=== PATIENT | female | born 1935 | race Caucasian/White ===

== ENCOUNTER 2019-01-04 10:32 | Inpatient (IN) | payer MEDICARE, OTHER ==
--- NOTE | 2019-01-04 11:47 | EDM.PDOC ---
ED HPI GENERAL MEDICAL PROBLEM - General Chief Complaint: General Time Seen by Provider: 01/04/19 10:34 Source of Information: Reports: Patient History Limitations: Reports: No Limitations - History of Present Illness INITIAL COMMENTS - FREE TEXT/NARRATIVE: Pt. presents to ER after being seen in clinic by Dr. [place]. She was sent here for labs, chest x-ray and EKG due in shortness of breath and swelling in her legs. She was seen in the clinic on 12/18 for acute ankle pain. In reviewing her chart, it appears that she was found to have a R sided fibula fracture. She has not had any follow-up for this, and also has not had it immobilized. She has been ambulating on the extremity. Apparently the pt. did not respond to her letter stating this. Pt. also states that she has been having increased shortness of breath. Neighbor states that she has noticed that the patient is obviously more short of breath over the past few months. Pt. stopped taking off of her medications, including insulin and coumadin for atrial fibrillation. She had not been seen in the clinic/had "no-showed" numerous times within the past year. She presented back to the clinic with complaints of R ankle pain. According to neighbor, the patient lives in filthy living conditions. She does not have a refrigerator. She has not been bathing or changing her clothing. The neighbor has been transporting her to appointments, to the store, and has also been picking up her mail for her. Patient does not have any family, and the neighbors have basically been taking care of her. They are very concerned about the patient's living conditions. The neighbor also states that she feels that patient is becoming progressively more confused over the past months as well. Pt. denies any fever or chills. No chest pain. No cough or congestion. No dysuria. No abdominal discomfort. No nausea, vomiting, or diarrhea. Onset Date: 01/04/19 Location: Reports: Chest Quality: Reports: Dull, Pressure Associated Symptoms: Reports: Confusion, Shortness of Breath. Denies: Fever/ Chills Right Feet Pain Score (Numeric/FACES): 3 - Related Data Allergies Allergy/AdvReac Type Severity Reaction Status Date / Time atorvastatin [From Lipitor] Allergy Cannot Verified 01/04/19 11:34 Remember celecoxib [From Celebrex] Allergy Other Verified 01/04/19 11:34 dexamethasone [From Decadron] Allergy Cannot Verified 01/04/19 11:34 Remember lisinopril Allergy Cannot Verified 01/04/19 11:34 Remember metformin Allergy Cannot Verified 01/04/19 11:34 Remember moexipril HCl [From Univasc] Allergy Other Verified 01/04/19 11:34 Sulfa (Sulfonamide Allergy Cannot Verified 01/04/19 11:34 Antibiotics) Remember triamcinolone acetonide Allergy Other Verified 01/04/19 11:34 [From Kenalog] diagnostic x-ray materials Allergy Rash Uncoded 01/04/19 11:34 Home Meds: Home Meds Allopurinol [Zyloprim] 300 mg PO DAILY 01/12/14 [History] Aspirin [Ecotrin] 81 mg PO DAILY 01/12/14 [History] Carvedilol [Coreg] 25 mg PO BID 01/12/14 [History] Digoxin [Digox] 125 mcg PO DAILY 01/12/14 [History] Furosemide [Lasix] 40 mg PO DAILY 01/12/14 [History] Rosuvastatin [Crestor] 1 tab PO DAILY 01/12/14 [History] Warfarin [Coumadin] 2.5 mg PO DAILY 01/12/14 [History] amLODIPine [Norvasc] 5 mg PO DAILY 01/12/14 [History] Insulin Glargine,Hum.Rec.Anlog [Lantus Solostar] 95 unit SQ BEDTIME 01/04/19 [ History] Insulin Lispro [Humalog] 15 unit SQ TID 01/04/19 [History] ED ROS GENERAL - Review of Systems Review Of Systems: See Below Constitutional: Reports: No Symptoms HEENT: Reports: No Symptoms Respiratory: Reports: Shortness of Breath Cardiovascular: Reports: Edema Endocrine: Reports: No Symptoms GI/Abdominal: Reports: No Symptoms : Reports: No Symptoms Musculoskeletal: Reports: Leg Pain Skin: Reports: No Symptoms Neurological: Reports: No Symptoms Psychiatric: Reports: No Symptoms Hematologic/Lymphatic: Reports: No Symptoms Immunologic: Reports: No Symptoms ED EXAM, GENERAL - Physical Exam Exam: See Below Exam Limited By: No Limitations General Appearance: Alert, WD/WN, No Apparent Distress Nose: Normal Inspection, Normal Mucosa, No Blood Throat/Mouth: Normal Inspection, Normal Lips, Normal Teeth, Normal Gums, Normal Oropharynx, Normal Voice, No Airway Compromise Head: Atraumatic, Normocephalic Neck: Normal Inspection, Supple, Non-Tender, Full Range of Motion Respiratory/Chest: No Respiratory Distress, Normal Breath Sounds, No Accessory Muscle Use, Chest Non-Tender, Decreased Breath Sounds Cardiovascular: Normal Peripheral Pulses, Regular Rate, Rhythm, No Edema, No JVD , No Murmur GI/Abdominal: Normal Bowel Sounds, Soft, Non-Tender, No Organomegaly, No Distention, No Mass (Female) Exam: Deferred Rectal (Female) Exam: Deferred Back Exam: Normal Inspection, Full Range of Motion Extremities: Leg Pain, Limited Range of Motion, Other (edema to R lower extremity with fluid weeping through the skin. Point tenderness to the lateral aspect of the ankle.) Neurological: Alert, Oriented, CN II-XII Intact, Normal Cognition, Normal Gait, Normal Reflexes, No Motor/Sensory Deficits Psychiatric: Normal Affect, Normal Mood Skin Exam: Warm, Dry, Intact, Normal Color, No Rash EKG INTERPRETATION Rhythm: A-Fib Course - Vital Signs Last Recorded V/S: Last Vital Signs Temp 37.1 C 01/04/19 12:39 Pulse 101 H 01/04/19 12:39 Resp 16 01/04/19 12:39 BP 151/83 H 01/04/19 12:39 Pulse Ox 93 L 01/04/19 12:39 - Orders/Labs/Meds Orders: Active Orders 24 hr Category Date Time Status EKG Documentation Completion [RC] STAT Care 01/04/19 11:12 Active CULTURE BLOOD [BC] Stat Lab 01/04/19 11:38 Received CULTURE BLOOD [BC] Stat Lab 01/04/19 11:45 Received CULTURE WOUND [RM] Stat Lab 01/04/19 11:00 Received Sodium Chloride 0.9% [Saline Flush] Med 01/04/19 12:45 Active 10 ml FLUSH ASDIRECTED PRN Blood Culture x2 Reflex Set [OM.PC] Stat Oth 01/04/19 11:12 Ordered Peripheral IV Insertion Adult [OM.PC] Routine Oth 01/04/19 12:45 Ordered Medication Orders Pharmacy Consult (Consult To Pharmacy) 1 each .XX ASDIRECTED GAIL Sodium Chloride (Saline Flush) 10 ml FLUSH ASDIRECTED PRN PRN Reason: Keep Vein Open Labs: Laboratory Tests 01/04/19 01/04/1919 Range/Units 11:38 11:38 11:38 WBC 8.2 (4.0-10.0) x10^3/uL RBC 3.73 L (4.00-5.50) x10^6/uL Hgb 12.5 (12.0-16.0) g/dL Hct 38.1 (33.0-47.0) % MCV 102.1 H (78.0-93.0) fL MCH 33.5 H (26.0-32.0) pg MCHC 32.8 (32.0-36.0) g/dL RDW Coeff of [place] 14.7 (10.0-15.0) % Plt Count 298 (130-400) x10^3/uL Neut % (Auto) 84.0 H (50.0-80.0) % Lymph % (Auto) 9.1 L (25.0-50.0) % [place] % (Auto) 6.3 (2.0-11.0) % Eos % (Auto) 0.4 (0.0-4.0) % Baso % (Auto) 0.2 (0.2-1.2) % PT 11.9 (10.0-12.8) SEC INR 1.0 L (2.0-3.5) D-Dimer, Quantitative 1.91 H (<=0.58) mg/LFEU Sodium 144 (69-191) mmol/L Potassium 2.8 L* (1.5-9.9) mmol/L Chloride 102 (54-184) mmol/L Carbon Dioxide 31 (21-32) mmol/L Anion Gap 13.8 (10-20) mmol/L BUN 13 (7-18) mg/dL Creatinine 0.9 (0.55-1.02) mg/dL Est Cr Clr Drug Dosing TNP Estimated GFR (MDRD) 60 Glucose 196 H (74-106) mg/dL Lactic Acid (0.4-2.0) mmol/L Calcium 8.5 (8.5-10.1) mg/dL Corrected Calcium 8.90 (8.5-10.1) mg/dL Total Bilirubin 1.6 H (0.2-1.0) mg/dL AST 23 (15-37) U/L ALT 29 (14-59) U/L Alkaline Phosphatase 92 (46-116) U/L Troponin I 0.040 (<=0.056) ng/mL C-Reactive Protein 1.0 H (<=0.9) mg/dL NT-Pro-B Natriuret Pep 8900 H (<=450) pg/mL Total Protein 7.3 (6.4-8.2) g/dL Albumin 3.5 (3.4-5.0) g/dL Globulin 3.8 Albumin/Globulin Ratio 0.92 TSH, Ultra Sensitive 1.653 (0.358-3.74) uIU/mL Urine Color (YELLOW) Urine Appearance (CLEAR) Urine pH (5.0-8.0) Ur Specific [place] Urine Protein (NEGATIVE) mg/dL Urine Glucose (UA) (NEGATIVE) mg/dL Urine Ketones (NEGATIVE) mg/dL Urine Occult Blood (NEGATIVE) Urine Nitrite (NEGATIVE) Urine Bilirubin (NEGATIVE) Urine Urobilinogen (0.2) EU/dL Ur Leukocyte Esterase (NEGATIVE) Urine RBC (NOT SEEN) /HPF Urine WBC (NOT SEEN) /HPF Ur Squamous Epith Cells (NEGATIVE) /HPF Urine Bacteria (NEGATIVE) /HPF Hyaline Casts (NEGATIVE) /HPF Urine Mucus (NEGATIVE) /LPF 01/04/19 01/04/19 Range/Units 11:38 11:50 WBC (4.0-10.0) x10^3/uL RBC (4.00-5.50) x10^6/uL Hgb (12.0-16.0) g/dL Hct (33.0-47.0) % MCV (78.0-93.0) fL MCH (26.0-32.0) pg MCHC (32.0-36.0) g/dL RDW Coeff of [place] (10.0-15.0) % Plt Count (130-400) x10^3/uL Neut % (Auto) (50.0-80.0) % Lymph % (Auto) (25.0-50.0) % [place] % (Auto) (2.0-11.0) % Eos % (Auto) (0.0-4.0) % Baso % (Auto) (0.2-1.2) % PT (10.0-12.8) SEC INR (2.0-3.5) D-Dimer, Quantitative (<=0.58) mg/LFEU Sodium (69-191) mmol/L Potassium (1.5-9.9) mmol/L Chloride (54-184) mmol/L Carbon Dioxide (21-32) mmol/L Anion Gap (10-20) mmol/L BUN (7-18) mg/dL Creatinine (0.55-1.02) mg/dL Est Cr Clr Drug Dosing Estimated GFR (MDRD) Glucose (74-106) mg/dL Lactic Acid 1.9 (0.4-2.0) mmol/L Calcium (8.5-10.1) mg/dL Corrected Calcium (8.5-10.1) mg/dL Total Bilirubin (0.2-1.0) mg/dL AST (15-37) U/L ALT (14-59) U/L Alkaline Phosphatase (46-116) U/L Troponin I (<=0.056) ng/mL C-Reactive Protein (<=0.9) mg/dL NT-Pro-B Natriuret Pep (<=450) pg/mL Total Protein (6.4-8.2) g/dL Albumin (3.4-5.0) g/dL Globulin Albumin/Globulin Ratio TSH, Ultra Sensitive (0.358-3.74) uIU/mL Urine Color Dark yellow H (YELLOW) Urine Appearance Cloudy H (CLEAR) Urine pH 7.0 (5.0-8.0) Ur Specific [place] 1.025 Urine Protein >=300 H (NEGATIVE) mg/dL Urine Glucose (UA) Negative (NEGATIVE) mg/dL Urine Ketones Trace H (NEGATIVE) mg/dL Urine Occult Blood Moderate H (NEGATIVE) Urine Nitrite Negative (NEGATIVE) Urine Bilirubin Small H (NEGATIVE) Urine Urobilinogen 1.0 (0.2) EU/dL Ur Leukocyte Esterase Negative (NEGATIVE) Urine RBC 20-30 H (NOT SEEN) /HPF Urine WBC 0-5 (NOT SEEN) /HPF Ur Squamous Epith Cells Few H (NEGATIVE) /HPF Urine Bacteria Not seen (NEGATIVE) /HPF Hyaline Casts Rare H (NEGATIVE) /HPF Urine Mucus Rare H (NEGATIVE) /LPF Meds: Medications Generic Name Dose Route Start Last Admin Trade Name Freq PRN Reason Stop Dose Admin Pharmacy Consult 1 each 01/04/19 13:45 Consult To Pharmacy .XX ASDIRECTED GAIL Sodium Chloride 10 ml 01/04/19 12:45 Saline Flush FLUSH ASDIRECTED PRN Keep Vein Open - Radiology Interpretation Free Text/Narrative:: Chest x-ray negative for acute pathology. Evidence of acute R fibula fracture on the R. No obvious change from previous, despite the extremity not being immobilized. Departure - Departure Time of Disposition: 13:49 Disposition: Admitted As Inpatient 66 Clinical Impression: CHF, Congestive heart failure, Hypokalemia, Fracture, fibula - Discharge Information - My Orders Last 24 Hours: My Active Orders 01/04/19 11:00 CULTURE WOUND [RM] Stat 01/04/19 11:12 EKG Documentation Completion [RC] STAT Blood Culture x2 Reflex Set [OM.PC] Stat 01/04/19 11:38 CULTURE BLOOD [BC] Stat 01/04/19 11:45 CULTURE BLOOD [BC] Stat 01/04/19 12:45 Sodium Chloride 0.9% [Saline Flush] 10 ml FLUSH ASDIRECTED PRN Peripheral IV Insertion Adult [OM.PC] Routine - Assessment/Plan Last 24 Hours: My Active Orders 01/04/19 11:00 CULTURE WOUND [RM] Stat 01/04/19 11:12 EKG Documentation Completion [RC] STAT Blood Culture x2 Reflex Set [OM.PC] Stat 01/04/19 11:38 CULTURE BLOOD [BC] Stat 01/04/19 11:45 CULTURE BLOOD [BC] Stat 01/04/19 12:45 Sodium Chloride 0.9% [Saline Flush] 10 ml FLUSH ASDIRECTED PRN Peripheral IV Insertion Adult [OM.PC] Routine Plan: Pt. agrees to be admitted. She will be admitted acutely. Rajiv Guido will be admitting. Pt. d dimer was positive. It was performed due to extremity edema. She needs to be anticoagulated for atrial fibrillation anyway, so she will be bridged with lovenox and restarted on coumadin, and a R lower extremity US will be performed on Tuesday. Pt. is very resistant to transfer, less so to admission.
--- NOTE | 2019-01-04 11:51 | CR ---
[id number] RAD/RAD Chest PA or AP 1V EXAM: RAD Chest PA or AP 1V INDICATION: EDEMA. COMPARISON: None. DISCUSSION: Cardiomegaly and central vascular congestion with bilateral pleural effusions right greater than left. Chest wall cardiac conduction device in place. Lungs demonstrate basal predominant interlobular septal thickening, most consistent with edematous change given other findings in the chest. IMPRESSION: Findings most consistent with CHF exacerbation, described above. Cj Koroma MD 01/04/19 [id number] Thank you for allowing us to participate in the care of your patient.
[2019-01-04 12:19] LABS: CHLORIDE,CL 102 mmol/L (54-184); SODIUM,NA 144 mmol/L (69-191)
[2019-01-04 12:20] LABS: ANION GAP 13.8 mmol/L (10-20)
--- NOTE | 2019-01-04 12:33 | CR ---
[id number] RAD/RAD Ankle Right 3V Min Exam: RAD Ankle Right 3V Min Indication:QUESTION FRACTURE OF RIGHT ANKLE (FIBULA). Comparison: No prior imaging for comparison. Discussion: Acute obliquely orientated nondisplaced fracture distal fibular metaphysis. No evidence of ankle mortise instability. No other fractures. Associated soft tissue edema in the lower leg and ankle. Chronic findings include osteoarthritis and enthesopathy of the Achilles tendon and plantar fascia at their calcaneal attachments. Diffuse bone demineralization. Impression: Acute nondisplaced obliquely orientated distal fibular metaphysis fracture with overlying soft tissue swelling. Cj Koroma MD 01/04/19 1835 Thank you for allowing us to participate in the care of your patient.
[2019-01-04] MEDS ORDERED: Sodium Chloride 0.9% 10 ML Syringe FLUSH PRN (12:45)
[2019-01-04 13:55] LABS: HEMOGLOBIN A1C 7.8 % (4.5-6.2)
[2019-01-04] MEDS ORDERED: Magnesium Sulfate/Water 2 GM in Premix Bag 1 BAG IV ONE (14:21)
[2019-01-04] MEDS ORDERED: Enoxaparin 40 MG/0.4 ML Syringe SUBCUT SCH (14:30)
[2019-01-04] MEDS ORDERED: Enoxaparin 100 MG/1 ML Syringe SUBCUT SCH (15:00)
[2019-01-04] MEDS ORDERED: Iopamidol 612 MG/ML 100 ML Bottle IVPUSH ONE (15:12)
[2019-01-04] MEDS: Potassium Chloride Riders 20 MEQ in Premix Bag 1 BAG IV SCH ×2 (16:15→22:28)
[2019-01-04] MEDS: Sodium Chloride 0.9% 1,000 ML IV SCH (16:15)
--- NOTE | 2019-01-04 16:50 | CT ---
[id number] CT/CTA Chest EXAM: CTA Chest CLINICAL DATA: ELEVATED D-DIMER, SHORTNESS OF BREATH, CONGESTIVE COMPARISON: January 04, 2019. FINDINGS: LUNGS: Bilateral pleural effusions right greater than left with basal predominant interlobular septal thickening and groundglass parenchymal opacities consistent with edema. Findings are consistent with fluid retention the chest. No suspicious parenchymal nodularity. HEART AND GREAT VESSELS: Cardiomegaly and central vascular congestion. No pericardial effusion. Negative for pulmonary embolus. Thoracic aorta atherosclerosis. No aneurysm. MEDIASTINUM AND LYMPHATICS: No mediastinal or hilar lymphadenopathy. UPPER ABDOMINAL ORGANS: Small amount of ascites in the upper abdomen in the perihepatic region. Other structures are unremarkable. BONES: Scattered changes of spondylosis throughout the spine. No fracture or osseous lesion. IMPRESSION: Changes consistent with CHF exacerbation as seen on radiograph from today. No pulmonary embolus or other acute findings in the chest. Cj Koroma MD 01/04/19 0246 Thank you for allowing us to participate in the care of your patient.
[2019-01-04] MEDS: Enoxaparin 100 MG/1 ML Syringe SUBCUT SCH (19:09)
[2019-01-04] MEDS: Carvedilol 3.125 MG Tab PO SCH (19:09)
[2019-01-04] MEDS: Insulin Regular, Human 100 Units/ML 3 ML Vial SUBCUT SCH ×2 (19:42→20:57)
[2019-01-04] MEDS: Warfarin 5 MG Tab PO SCH (19:59)
--- NOTE | 2019-01-04 20:24 | PCM.HP.2 ---
H&P History of Present Illness - General Date of Service: 01/04/19 Admit Problem/Dx: Admission Diagnosis/Problem Admission Diagnosis/Problem Acute exacerbation of chronic congestive heart failure Hypokalemia Hypomagnesemia Fluid retention Nondisplaced distal fibular metaphysis fracture, right Malnutrition Uncontrolled diabetes type 2 Acute pulmonary edema secondary to CHF Source of Information: Patient, Old Records, RN, RN Notes Reviewed History Limitations: Reports: No Limitations - History of Present Illness Initial Comments - Free Text/Narative: 82-year-old female patient seen in clinic on December 28, 2018 for a chief complaint of right ankle pain. The patient had denied any injury at that time. X -ray of the right ankle at that time did show a fracture. The patient was contacted via letter so her right foot to be placed in a boot, however she did not return to the clinic. The patient was seen again today in clinic for swelling of the right calf and right lower extremity, painful ankle, and increasing shortness of breath. The patient is somewhat of a poor historian and could not remember when her shortness of breath started. Given the provider's examination, it was felt the patient needed to be seen in emergency room due to her current symptoms. The patient is also had a 16 pound weight loss over the past week. Workup in the emergency department at [facility] showed a BNP of 8900, potassium of 2.9, pulmonary edema on chest x-ray, and again the nondisplaced distal fibular fracture. The patient has blistering of the right lower extremity. According to the patient's clinical records, the patient had stopped all of her medications over 8 months ago. The patient has a history of atrial fibrillation and has not been taking her Coumadin placing her at great risk of a pulmonary embolus or DVT. The patient also has not been taking her insulin or antihypertensive medications. The patient's last visit in clinic was January 2018. The patient also has a pacemaker and has not been following up with the pacemaker clinic. The patient is admitted to the acute care floor at [facility] for acute exacerbation of CHF, right fibular fracture, uncontrolled diabetes, malnutrition , and pulmonary edema. Onset of Symptoms: Reports: Unknown/Unsure Right Feet Pain Score (Numeric/FACES): 3 - Related Data Allergies/Adverse Reactions: Allergies Allergy/AdvReac Type Severity Reaction Status Date / Time atorvastatin [From Lipitor] Allergy Cannot Verified 01/04/19 11:34 Remember celecoxib [From Celebrex] Allergy Other Verified 01/04/19 11:34 dexamethasone [From Decadron] Allergy Cannot Verified 01/04/19 11:34 Remember lisinopril Allergy Cannot Verified 01/04/19 11:34 Remember metformin Allergy Cannot Verified 01/04/19 11:34 Remember moexipril HCl [From Univasc] Allergy Other Verified 01/04/19 11:34 Sulfa (Sulfonamide Allergy Cannot Verified 01/04/19 11:34 Antibiotics) Remember triamcinolone acetonide Allergy Other Verified 01/04/19 11:34 [From Kenalog] diagnostic x-ray materials Allergy Rash Uncoded 01/04/19 11:34 Home Medications: Home Meds Allopurinol [Zyloprim] 300 mg PO DAILY 01/12/14 [History] Aspirin [Ecotrin] 81 mg PO DAILY 01/12/14 [History] Carvedilol [Coreg] 25 mg PO BIDMEALS 01/12/14 [History] Digoxin [Digox] 125 mcg PO DAILY 01/12/14 [History] Furosemide [Lasix] 40 mg PO DAILY 01/12/14 [History] Rosuvastatin [Crestor] 20 mg PO DAILY 01/12/14 [History] Warfarin [Coumadin] 1.25 mg PO MOTH 01/12/14 [History] amLODIPine [Norvasc] 5 mg PO DAILY 01/12/14 [History] Insulin Glargine,Hum.Rec.Anlog [Lantus Solostar] 95 unit SQ BEDTIME 01/04/19 [ History] Insulin Lispro [Humalog] 15 unit SQ TIDMEALS 01/04/19 [History] Warfarin [Coumadin] 2.5 mg PO SUTUWEFRSA 01/04/19 [History] Past Medical History Cardiovascular History: Reports: Afib, CAD, Heart Failure, High Cholesterol, Hypertension, Pacemaker, Stents Other Cardiovascular History: hypotension Gastrointestinal History: Reports: Diverticulosis Genitourinary History: Reports: Renal Calculus Musculoskeletal History: Reports: Gout Endocrine/Metabolic History: Reports: Diabetes, Type II - Past Surgical History Cardiovascular Surgical History: Reports: Coronary Artery Stent, Pacer Social & Family History - Tobacco Use Smoking Status *Q: Never Smoker Second Hand Smoke Exposure: No - Caffeine Use Caffeine Use: Reports: None - Recreational Drug Use Recreational Drug Use: No H&P Review of Systems - Review of Systems: Review Of Systems: ROS reveals no pertinent complaints other than HPI. Exam - Exam Exam: See Below - Vital Signs Vital Signs: Last Vital Signs Temp 98.3 F 01/04/19 17:16 Pulse 91 01/04/19 19:09 Resp 18 01/04/19 17:16 BP 139/64 01/04/19 19:09 Pulse Ox 91 L 01/04/19 17:16 Weight: 189 lb 14.4 oz - Exam Quality Assessment: DVT Prophylaxis, Skin Breakdown General: Alert, Cooperative. No: Oriented Lungs: Normal Respiratory Effort, Decreased Breath Sounds, Crackles Cardiovascular: Regular Rate, Irregular Rhythm GI/Abdominal Exam: Soft, Non-Tender, Abnormal Bowel Sounds (Hypoactive) Extremities: Other (Right lower extremity reveals +2 dependent pitting edema; anterior blistering of the right lower extremity; +1 intermittent palpable pulse ; no evidence of active infection; skin normal temp) Peripheral Pulses: 1+: Radial (L), Radial (R) Skin: Warm, Dry, Wound (Anterior right lower leg) Neuro Extensive - Mental Status: Alert, Disorientation to Time - Patient Data Lab Results Last 24 hrs: Laboratory Results - last 24 hr 01/04/19 01/04/19 01/04/19 Range/Units 11:38 11:38 11:38 WBC 8.2 (4.0-10.0) x10^3/uL RBC 3.73 L (4.00-5.50) x10^6/uL Hgb 12.5 (12.0-16.0) g/dL Hct 38.1 (33.0-47.0) % MCV 102.1 H (78.0-93.0) fL MCH 33.5 H (26.0-32.0) pg MCHC 32.8 (32.0-36.0) g/dL RDW Coeff of [place] 14.7 (10.0-15.0) % Plt Count 298 (130-400) x10^3/uL Neut % (Auto) 84.0 H (50.0-80.0) % Lymph % (Auto) 9.1 L (25.0-50.0) % [place] % (Auto) 6.3 (2.0-11.0) % Eos % (Auto) 0.4 (0.0-4.0) % Baso % (Auto) 0.2 (0.2-1.2) % PT 11.9 (10.0-12.8) SEC INR 1.0 L (2.0-3.5) D-Dimer, Quantitative 1.91 H (<=0.58) mg/LFEU Sodium 144 (69-191) mmol/L Potassium 2.8 L* (1.5-9.9) mmol/L Chloride 102 (54-184) mmol/L Carbon Dioxide 31 (21-32) mmol/L Anion Gap 13.8 (10-20) mmol/L BUN 13 (7-18) mg/dL Creatinine 0.9 (0.55-1.02) mg/dL Est Cr Clr Drug Dosing TNP Estimated GFR (MDRD) 60 Glucose 196 H (74-106) mg/dL POC Glucose (74-106) mg/dL Hemoglobin A1c (4.5-6.2) % Lactic Acid (0.4-2.0) mmol/L Uric Acid (2.6-6.0) mg/dL Calcium 8.5 (8.5-10.1) mg/dL Corrected Calcium 8.90 (8.5-10.1) mg/dL Phosphorus (2.6-4.7) mg/dL Magnesium (1.8-2.4) mg/dL Total Bilirubin 1.6 H (0.2-1.0) mg/dL AST 23 (15-37) U/L ALT 29 (14-59) U/L Alkaline Phosphatase 92 (46-116) U/L Troponin I 0.040 (<=0.056) ng/mL C-Reactive Protein 1.0 H (<=0.9) mg/dL NT-Pro-B Natriuret Pep 8900 H (<=450) pg/mL Total Protein 7.3 (6.4-8.2) g/dL Albumin 3.5 (3.4-5.0) g/dL Globulin 3.8 Albumin/Globulin Ratio 0.92 TSH, Ultra Sensitive 1.653 (0.358-3.74) uIU/mL Urine Color (YELLOW) Urine Appearance (CLEAR) Urine pH (5.0-8.0) Ur Specific [place] Urine Protein (NEGATIVE) mg/dL Urine Glucose (UA) (NEGATIVE) mg/dL Urine Ketones (NEGATIVE) mg/dL Urine Occult Blood (NEGATIVE) Urine Nitrite (NEGATIVE) Urine Bilirubin (NEGATIVE) Urine Urobilinogen (0.2) EU/dL Ur Leukocyte Esterase (NEGATIVE) Urine RBC (NOT SEEN) /HPF Urine WBC (NOT SEEN) /HPF Ur Squamous Epith Cells (NEGATIVE) /HPF Urine Bacteria (NEGATIVE) /HPF Hyaline Casts (NEGATIVE) /HPF Urine Mucus (NEGATIVE) /LPF Digoxin (0.90-2.00) ng/mL 01/04/19 01/04/19 01/04/19 Range/Units 11:38 11:38 11:38 WBC (4.0-10.0) x10^3/uL RBC (4.00-5.50) x10^6/uL Hgb (12.0-16.0) g/dL Hct (33.0-47.0) % MCV (78.0-93.0) fL MCH (26.0-32.0) pg MCHC (32.0-36.0) g/dL RDW Coeff of [place] (10.0-15.0) % Plt Count (130-400) x10^3/uL Neut % (Auto) (50.0-80.0) % Lymph % (Auto) (25.0-50.0) % [place] % (Auto) (2.0-11.0) % Eos % (Auto) (0.0-4.0) % Baso % (Auto) (0.2-1.2) % PT (10.0-12.8) SEC INR (2.0-3.5) D-Dimer, Quantitative (<=0.58) mg/LFEU Sodium (69-191) mmol/L Potassium (1.5-9.9) mmol/L Chloride (54-184) mmol/L Carbon Dioxide (21-32) mmol/L Anion Gap (10-20) mmol/L BUN (7-18) mg/dL Creatinine (0.55-1.02) mg/dL Est Cr Clr Drug Dosing Estimated GFR (MDRD) Glucose (74-106) mg/dL POC Glucose (74-106) mg/dL Hemoglobin A1c 7.8 H (4.5-6.2) % Lactic Acid 1.9 (0.4-2.0) mmol/L Uric Acid (2.6-6.0) mg/dL Calcium (8.5-10.1) mg/dL Corrected Calcium (8.5-10.1) mg/dL Phosphorus 3.1 (2.6-4.7) mg/dL Magnesium 1.5 L (1.8-2.4) mg/dL Total Bilirubin (0.2-1.0) mg/dL AST (15-37) U/L ALT (14-59) U/L Alkaline Phosphatase (46-116) U/L Troponin I (<=0.056) ng/mL C-Reactive Protein (<=0.9) mg/dL NT-Pro-B Natriuret Pep (<=450) pg/mL Total Protein (6.4-8.2) g/dL Albumin (3.4-5.0) g/dL Globulin Albumin/Globulin Ratio TSH, Ultra Sensitive (0.358-3.74) uIU/mL Urine Color (YELLOW) Urine Appearance (CLEAR) Urine pH (5.0-8.0) Ur Specific [place] Urine Protein (NEGATIVE) mg/dL Urine Glucose (UA) (NEGATIVE) mg/dL Urine Ketones (NEGATIVE) mg/dL Urine Occult Blood (NEGATIVE) Urine Nitrite (NEGATIVE) Urine Bilirubin (NEGATIVE) Urine Urobilinogen (0.2) EU/dL Ur Leukocyte Esterase (NEGATIVE) Urine RBC (NOT SEEN) /HPF Urine WBC (NOT SEEN) /HPF Ur Squamous Epith Cells (NEGATIVE) /HPF Urine Bacteria (NEGATIVE) /HPF Hyaline Casts (NEGATIVE) /HPF Urine Mucus (NEGATIVE) /LPF Digoxin (0.90-2.00) ng/mL 01/04/19 01/04/19 01/04/19 Range/Units 11:38 11:50 17:20 WBC (4.0-10.0) x10^3/uL RBC (4.00-5.50) x10^6/uL Hgb (12.0-16.0) g/dL Hct (33.0-47.0) % MCV (78.0-93.0) fL MCH (26.0-32.0) pg MCHC (32.0-36.0) g/dL RDW Coeff of [place] (10.0-15.0) % Plt Count (130-400) x10^3/uL Neut % (Auto) (50.0-80.0) % Lymph % (Auto) (25.0-50.0) % [place] % (Auto) (2.0-11.0) % Eos % (Auto) (0.0-4.0) % Baso % (Auto) (0.2-1.2) % PT (10.0-12.8) SEC INR (2.0-3.5) D-Dimer, Quantitative (<=0.58) mg/LFEU Sodium (69-191) mmol/L Potassium (1.5-9.9) mmol/L Chloride (54-184) mmol/L Carbon Dioxide (21-32) mmol/L Anion Gap (10-20) mmol/L BUN (7-18) mg/dL Creatinine (0.55-1.02) mg/dL Est Cr Clr Drug Dosing Estimated GFR (MDRD) Glucose (74-106) mg/dL POC Glucose 161 H (74-106) mg/dL Hemoglobin A1c (4.5-6.2) % Lactic Acid (0.4-2.0) mmol/L Uric Acid 9.9 H (2.6-6.0) mg/dL Calcium (8.5-10.1) mg/dL Corrected Calcium (8.5-10.1) mg/dL Phosphorus (2.6-4.7) mg/dL Magnesium (1.8-2.4) mg/dL Total Bilirubin (0.2-1.0) mg/dL AST (15-37) U/L ALT (14-59) U/L Alkaline Phosphatase (46-116) U/L Troponin I (<=0.056) ng/mL C-Reactive Protein (<=0.9) mg/dL NT-Pro-B Natriuret Pep (<=450) pg/mL Total Protein (6.4-8.2) g/dL Albumin (3.4-5.0) g/dL Globulin Albumin/Globulin Ratio TSH, Ultra Sensitive (0.358-3.74) uIU/mL Urine Color Dark yellow H (YELLOW) Urine Appearance Cloudy H (CLEAR) Urine pH 7.0 (5.0-8.0) Ur Specific [place] 1.025 Urine Protein >=300 H (NEGATIVE) mg/dL Urine Glucose (UA) Negative (NEGATIVE) mg/dL Urine Ketones Trace H (NEGATIVE) mg/dL Urine Occult Blood Moderate H (NEGATIVE) Urine Nitrite Negative (NEGATIVE) Urine Bilirubin Small H (NEGATIVE) Urine Urobilinogen 1.0 (0.2) EU/dL Ur Leukocyte Esterase Negative (NEGATIVE) Urine RBC 20-30 H (NOT SEEN) /HPF Urine WBC 0-5 (NOT SEEN) /HPF Ur Squamous Epith Cells Few H (NEGATIVE) /HPF Urine Bacteria Not seen (NEGATIVE) /HPF Hyaline Casts Rare H (NEGATIVE) /HPF Urine Mucus Rare H (NEGATIVE) /LPF Digoxin < 0.20 L (0.90-2.00) ng/mL 01/04/19 Range/Units 19:57 WBC (4.0-10.0) x10^3/uL RBC (4.00-5.50) x10^6/uL Hgb (12.0-16.0) g/dL Hct (33.0-47.0) % MCV (78.0-93.0) fL MCH (26.0-32.0) pg MCHC (32.0-36.0) g/dL RDW Coeff of [place] (10.0-15.0) % Plt Count (130-400) x10^3/uL Neut % (Auto) (50.0-80.0) % Lymph % (Auto) (25.0-50.0) % [place] % (Auto) (2.0-11.0) % Eos % (Auto) (0.0-4.0) % Baso % (Auto) (0.2-1.2) % PT (10.0-12.8) SEC INR (2.0-3.5) D-Dimer, Quantitative (<=0.58) mg/LFEU Sodium (69-191) mmol/L Potassium (1.5-9.9) mmol/L Chloride (54-184) mmol/L Carbon Dioxide (21-32) mmol/L Anion Gap (10-20) mmol/L BUN (7-18) mg/dL Creatinine (0.55-1.02) mg/dL Est Cr Clr Drug Dosing Estimated GFR (MDRD) Glucose (74-106) mg/dL POC Glucose 225 H (74-106) mg/dL Hemoglobin A1c (4.5-6.2) % Lactic Acid (0.4-2.0) mmol/L Uric Acid (2.6-6.0) mg/dL Calcium (8.5-10.1) mg/dL Corrected Calcium (8.5-10.1) mg/dL Phosphorus (2.6-4.7) mg/dL Magnesium (1.8-2.4) mg/dL Total Bilirubin (0.2-1.0) mg/dL AST (15-37) U/L ALT (14-59) U/L Alkaline Phosphatase (46-116) U/L Troponin I (<=0.056) ng/mL C-Reactive Protein (<=0.9) mg/dL NT-Pro-B Natriuret Pep (<=450) pg/mL Total Protein (6.4-8.2) g/dL Albumin (3.4-5.0) g/dL Globulin Albumin/Globulin Ratio TSH, Ultra Sensitive (0.358-3.74) uIU/mL Urine Color (YELLOW) Urine Appearance (CLEAR) Urine pH (5.0-8.0) Ur Specific [place] Urine Protein (NEGATIVE) mg/dL Urine Glucose (UA) (NEGATIVE) mg/dL Urine Ketones (NEGATIVE) mg/dL Urine Occult Blood (NEGATIVE) Urine Nitrite (NEGATIVE) Urine Bilirubin (NEGATIVE) Urine Urobilinogen (0.2) EU/dL Ur Leukocyte Esterase (NEGATIVE) Urine RBC (NOT SEEN) /HPF Urine WBC (NOT SEEN) /HPF Ur Squamous Epith Cells (NEGATIVE) /HPF Urine Bacteria (NEGATIVE) /HPF Hyaline Casts (NEGATIVE) /HPF Urine Mucus (NEGATIVE) /LPF Digoxin (0.90-2.00) ng/mL Result Diagrams: 01/04/19 11:38 01/04/19 11:38 *Q Meaningful Use (ADM) - VTE *Q VTE Mechanical Contraindications *Q: At Risk for Falls Problem List Initiated/Reviewed/Updated: Yes Orders Last 24hrs: Active Orders 24 hr Category Date Time Status Patient Status [ADT] Routine ADT 01/04/19 13:27 Active Accu Check [Blood Glucose Check, Bedside] [RC] 07,11,17 Care 01/04/19 15:22 Active ,20 Bedrest Bedside Commode [RC] 08,20 Care 01/04/19 13:25 Active Cardiac Monitoring [RC] 02,06,10,14,18,22 Care 01/04/19 13:29 Active Height and Weight [RC] 07 Care 01/04/19 13:25 Active Intake and Output [RC] 06,18 Care 01/04/19 13:28 Active May Shower [RC] .PRN Care 01/04/19 13:25 Active Oxygen Therapy [RC] .PRN Care 01/04/19 13:27 Active VTE/DVT Education [RC] .PRN Care 01/04/19 13:27 Active Vital Signs [RC] 02,06,10,14,18,22 Care 01/04/19 13:27 Active Consult to Case Management/Pension Fund Manager [CONS] Cons 01/04/19 13:25 Active Routine OT Evaluation and Treatment [CONS] Routine Cons 01/04/19 13:25 Active PT Evaluation and Treatment [CONS] Routine Cons 01/04/19 13:25 Active [employer] Diet [DIET] Diet 01/04/19 Breakfast Active BASIC METABOLIC PANEL,BMP [CHEM] Routine Lab 01/05/19 05:11 Ordered CBC WITH AUTO DIFF [HEME] Routine Lab 01/05/19 05:11 Ordered CULTURE BLOOD [BC] Stat Lab 01/04/19 11:38 Received CULTURE BLOOD [BC] Stat Lab 01/04/19 11:45 Received CULTURE WOUND [RM] Stat Lab 01/04/19 11:00 Received INR,PT,PROTHROMBIN TIME [COAG] DAILY Lab 01/05/19 05:01 Ordered INR,PT,PROTHROMBIN TIME [COAG] DAILY Lab 01/06/19 05:01 Ordered INR,PT,PROTHROMBIN TIME [COAG] DAILY Lab 01/07/19 05:01 Ordered INR,PT,PROTHROMBIN TIME [COAG] DAILY Lab 01/08/19 05:01 Ordered INR,PT,PROTHROMBIN TIME [COAG] DAILY Lab 01/09/19 05:01 Ordered INR,PT,PROTHROMBIN TIME [COAG] DAILY Lab 01/10/19 05:01 Ordered INR,PT,PROTHROMBIN TIME [COAG] DAILY Lab 01/11/19 05:01 Ordered MAGNESIUM [CHEM] Routine Lab 01/05/19 05:11 Ordered Carvedilol [Coreg] Med 01/04/19 18:00 Active 3.125 mg PO BIDM Enoxaparin [Lovenox] Med 01/04/19 18:00 Active 90 mg SUBCUT Q12H Insulin Regular, Human [HumuLIN R] Med 01/04/19 18:00 Active See Protocol SUBCUT TIDMEALS Pharmacy Consult [Consult to Pharmacy] Med 01/04/19 13:45 Pending 1 each .XX ASDIRECTED Sodium Chloride 0.9% [Normal Saline] 1,000 ml Med 01/04/19 13:45 Active IV ASDIRECTED Sodium Chloride 0.9% [Saline Flush] Med 01/04/19 12:45 Active 10 ml FLUSH ASDIRECTED PRN Warfarin [Coumadin] Med 01/04/19 20:00 Active 5 mg PO BEDTIME amLODIPine [Norvasc] Med 01/05/19 08:00 Active 2.5 mg PO DAILY Blood Culture x2 Reflex Set [OM.PC] Stat Oth 01/04/19 11:12 Ordered Peripheral IV Insertion Adult [OM.PC] Routine Oth 01/04/19 12:45 Ordered Resuscitation Status Routine Resus Stat 01/04/19 13:25 Ordered Medication Orders Amlodipine Besylate (Norvasc) 2.5 mg PO DAILY [facility] Carvedilol (Coreg) 3.125 mg PO BIDM [facility] Last Admin: 01/04/19 19:09 Dose: 3.125 mg Enoxaparin Sodium (Lovenox) 90 mg SUBCUT Q12H [facility] Last Admin: 01/04/19 19:09 Dose: 90 mg Sodium Chloride (Normal Saline) 1,000 mls @ 50 mls/hr IV ASDIRECTED GAIL Last Admin: 01/04/19 16:15 Dose: 50 mls/hr Insulin Human Regular (Humulin R) 0 unit SUBCUT TIDMEALS [facility]; Protocol Last Admin: 01/04/19 19:42 Dose: Not Given Pharmacy Consult (Consult To Pharmacy) 1 each .XX ASDIRECTED GAIL Sodium Chloride (Saline Flush) 10 ml FLUSH ASDIRECTED PRN PRN Reason: Keep Vein Open Last Admin: 01/04/19 16:21 Dose: 10 ml Warfarin Sodium (Coumadin) 5 mg PO BEDTIME [facility] Last Admin: 01/04/19 19:59 Dose: 5 mg Assessment/Plan Comment:: Acute exacerbation of chronic congestive heart failure Pulmonary edema Fluid retention Uncontrolled diabetes type 2 Hypokalemia Hypomagnesemia Chronic atrial fibrillation Sinoatrial node dysfunction Essential hypertension Mixed hyperlipidemia 83-year-old female patient with a past medical history of congestive heart failure, atrial fibrillation, essential hypertension, diabetes type 2, coronary artery disease is admitted to the acute care floor at [facility] for a primary diagnosis of acute exacerbation of congestive heart failure, pulmonary edema, fluid retention, uncontrolled diabetes type 2, hypokalemia, hypomagnesemia, and malnutrition. The patient will not be given any Lasix until her potassium has been repleted. Will give the patient 40 mEq of IV potassium. Patient will also receive 2 g of IV magnesium. The patient CT scan of her chest was negative for any pulmonary embolus. The CT scan showed pulmonary edema. We will hold the patient's home insulins at this time and start the patient on high -dose sliding scale. Since the patient has not been on her medications we will reintroduce them slowly. The patient will be started on low-dose Coreg twice daily as well as low-dose Norvasc. We will hold all the other patient's medications. We will place the patient denied Cam Walker boot and weightbearing as tolerated. We will consult physical and occupational therapy as well as case management for discharge planning, possible detention placement depending upon how the patient does. We will also consider guardianship for the patient due to her malnutrition and home living situation. The patient is a code 1. The patient will be transferred to a high-level care should the need arise. The patient will be started on Coumadin bridged with Lovenox per pharmacy for anticoagulation. I do anticipate the patient to be admitted at least 3-4 days. NOTE: This patient was seen and examined by me as an [facility] provider. - Mortality Measure Prognosis:: Poor
[2019-01-04] MEDS ORDERED: Potassium Chloride Riders 20 MEQ in Premix Bag 1 BAG IV ONE (22:30)
[2019-01-05] MEDS: Enoxaparin 100 MG/1 ML Syringe SUBCUT SCH (06:02)
[2019-01-05 07:04] LABS: CHLORIDE,CL 105 mmol/L (54-184); SODIUM,NA 144 mmol/L (69-191)
[2019-01-05 07:05] LABS: ANION GAP 13.2 mmol/L (10-20)
[2019-01-05] MEDS: amLODIPine 2.5 MG Tab PO SCH (07:29)
[2019-01-05] MEDS: Carvedilol 3.125 MG Tab PO SCH ×2 (07:29→18:36)
[2019-01-05] MEDS: Insulin Regular, Human 100 Units/ML 3 ML Vial SUBCUT SCH ×3 (07:31→18:05)
[2019-01-05] MEDS ORDERED: Furosemide 40 MG/4 ML VIAL IV ONE (12:58)
--- NOTE | 2019-01-05 13:06 | PCM.PN ---
- General Info Date of Service: 01/05/19 Admission Dx/Problem (Free Text): Admission Diagnosis/Problem Admission Diagnosis/Problem Acute exacerbation of chronic congestive heart failure Hypokalemia Hypomagnesemia Fluid retention Nondisplaced distal fibular metaphysis fracture, right Malnutrition Uncontrolled diabetes type 2 Acute pulmonary edema secondary to CHF Functional Status: Reports: Pain Controlled, Tolerating Diet, Urinating. Denies : New Symptoms Pain Score: 2 - Review of Systems General: Reports: Weakness. Denies: Fever, Chills Pulmonary: Reports: Shortness of Breath. Denies: Cough Cardiovascular: Denies: Chest Pain, Palpitations Gastrointestinal: Denies: Abdominal Pain, Nausea, Vomiting Musculoskeletal: Reports: Other (PAIN RIGHT LOWER LEG) Skin: Reports: Other (WEEPING OF RIGHT LOWER LEG; EDEMA +2 DEPENDENT PITTING) Neurological: Reports: No Symptoms - Patient Data Vitals - Most Recent: Last Vital Signs Temp 98 F 01/05/19 10:00 Pulse 82 01/05/19 10:00 Resp 16 01/05/19 10:00 BP 118/55 L 01/05/19 10:00 Pulse Ox 94 L 01/05/19 10:00 Weight - Most Recent: 191 lb I&O - Last 24 Hours: Intake & Output 01/04/19 01/05/19 01/05/19 22:59 06:59 14:59 Intake Total 237 635 240 Output Total 150 100 Balance 237 485 140 Lab Results Last 24 Hours: Laboratory Results - last 24 hr 01/04/19 01/04/19 01/04/19 Range/Units 11:38 11:38 11:38 WBC (4.0-10.0) x10^3/uL RBC (4.00-5.50) x10^6/uL Hgb (12.0-16.0) g/dL Hct (33.0-47.0) % MCV (78.0-93.0) fL MCH (26.0-32.0) pg MCHC (32.0-36.0) g/dL RDW Coeff of [place] (10.0-15.0) % Plt Count (130-400) x10^3/uL Neut % (Auto) (50.0-80.0) % Lymph % (Auto) (25.0-50.0) % [place] % (Auto) (2.0-11.0) % Eos % (Auto) (0.0-4.0) % Baso % (Auto) (0.2-1.2) % PT (10.0-12.8) SEC INR (2.0-3.5) Sodium (69-191) mmol/L Potassium (1.5-9.9) mmol/L Chloride (54-184) mmol/L Carbon Dioxide (21-32) mmol/L Anion Gap (10-20) mmol/L BUN (7-18) mg/dL Creatinine (0.55-1.02) mg/dL Est Cr Clr Drug Dosing mL/min Estimated GFR (MDRD) Glucose (74-106) mg/dL POC Glucose (74-106) mg/dL Hemoglobin A1c 7.8 H (4.5-6.2) % Uric Acid 9.9 H (2.6-6.0) mg/dL Calcium (8.5-10.1) mg/dL Phosphorus 3.1 (2.6-4.7) mg/dL Magnesium 1.5 L (1.8-2.4) mg/dL Digoxin < 0.20 L (0.90-2.00) ng/mL 01/04/19 01/04/19 01/05/19 Range/Units 17:20 19:57 06:26 WBC (4.0-10.0) x10^3/uL RBC (4.00-5.50) x10^6/uL Hgb (12.0-16.0) g/dL Hct (33.0-47.0) % MCV (78.0-93.0) fL MCH (26.0-32.0) pg MCHC (32.0-36.0) g/dL RDW Coeff of [place] (10.0-15.0) % Plt Count (130-400) x10^3/uL Neut % (Auto) (50.0-80.0) % Lymph % (Auto) (25.0-50.0) % [place] % (Auto) (2.0-11.0) % Eos % (Auto) (0.0-4.0) % Baso % (Auto) (0.2-1.2) % PT (10.0-12.8) SEC INR (2.0-3.5) Sodium 144 (69-191) mmol/L Potassium 3.2 L (1.5-9.9) mmol/L Chloride 105 (54-184) mmol/L Carbon Dioxide 29 (21-32) mmol/L Anion Gap 13.2 (10-20) mmol/L BUN 15 (7-18) mg/dL Creatinine 0.8 (0.55-1.02) mg/dL Est Cr Clr Drug Dosing 47.95 mL/min Estimated GFR (MDRD) > 60 Glucose 113 H (74-106) mg/dL POC Glucose 161 H 225 H (74-106) mg/dL Hemoglobin A1c (4.5-6.2) % Uric Acid (2.6-6.0) mg/dL Calcium 8.4 L (8.5-10.1) mg/dL Phosphorus (2.6-4.7) mg/dL Magnesium 2.1 (1.8-2.4) mg/dL Digoxin (0.90-2.00) ng/mL 01/05/19 01/05/19 Range/Units 06:26 06:26 WBC 7.8 (4.0-10.0) x10^3/uL RBC 3.70 L (4.00-5.50) x10^6/uL Hgb 12.6 (12.0-16.0) g/dL Hct 38.0 (33.0-47.0) % MCV 102.7 H (78.0-93.0) fL MCH 34.1 H (26.0-32.0) pg MCHC 33.2 (32.0-36.0) g/dL RDW Coeff of [place] 15.0 (10.0-15.0) % Plt Count 285 (130-400) x10^3/uL Neut % (Auto) 67.8 (50.0-80.0) % Lymph % (Auto) 18.9 L (25.0-50.0) % [place] % (Auto) 9.5 (2.0-11.0) % Eos % (Auto) 3.5 (0.0-4.0) % Baso % (Auto) 0.3 (0.2-1.2) % PT 11.4 (10.0-12.8) SEC INR 1.0 L (2.0-3.5) Sodium (69-191) mmol/L Potassium (1.5-9.9) mmol/L Chloride (54-184) mmol/L Carbon Dioxide (21-32) mmol/L Anion Gap (10-20) mmol/L BUN (7-18) mg/dL Creatinine (0.55-1.02) mg/dL Est Cr Clr Drug Dosing mL/min Estimated GFR (MDRD) Glucose (74-106) mg/dL POC Glucose (74-106) mg/dL Hemoglobin A1c (4.5-6.2) % Uric Acid (2.6-6.0) mg/dL Calcium (8.5-10.1) mg/dL Phosphorus (2.6-4.7) mg/dL Magnesium (1.8-2.4) mg/dL Digoxin (0.90-2.00) ng/mL Elias Results Last 24 Hours: Microbiology 01/04/19 11:00 Wound Culture - Preliminary Skin / Skin Scrapings - Leg, Right Staphylococcus Aureus 01/04/19 11:38 Aerobic Blood Culture - Preliminary Blood - Venous NO GROWTH AFTER 1 DAY Anaerobic Blood Culture - Preliminary NO GROWTH AFTER 1 DAY 01/04/19 11:45 Aerobic Blood Culture - Preliminary Blood - Venous - Lab Draw NO GROWTH AFTER 1 DAY Anaerobic Blood Culture - Preliminary NO GROWTH AFTER 1 DAY Med Orders - Current: Current Medications Acetaminophen (Tylenol Extra Strength) 1,000 mg PO Q6H PRN PRN Reason: Pain Amlodipine Besylate (Norvasc) 2.5 mg PO DAILY [facility] Last Admin: 01/05/19 07:29 Dose: 2.5 mg Carvedilol (Coreg) 3.125 mg PO BIDM [facility] Last Admin: 01/05/19 07:29 Dose: 3.125 mg Enoxaparin Sodium (Lovenox) 80 mg SUBCUT BID [facility] Furosemide (Lasix) 40 mg IV ONETIME ONE Stop: 01/05/19 12:59 Sodium Chloride (Normal Saline) 1,000 mls @ 50 mls/hr IV ASDIRECTED [facility] Last Admin: 01/04/19 16:15 Dose: 50 mls/hr Potassium Chloride 20 meq/ (Premix) 50 mls @ 50 mls/hr IV Q2H [facility] Stop: 01/05/19 15:59 Insulin Human Regular (Humulin R) 0 unit SUBCUT TIDMEALS [facility]; Protocol Last Admin: 01/05/19 12:18 Dose: 3 unit Pharmacy Consult (Consult To Pharmacy) 1 each .XX ASDIRECTED GAIL Sodium Chloride (Saline Flush) 10 ml FLUSH ASDIRECTED PRN PRN Reason: Keep Vein Open Last Admin: 01/04/19 16:21 Dose: 10 ml Warfarin Sodium (Coumadin) 5 mg PO BEDTIME GAIL Last Admin: 01/04/19 19:59 Dose: 5 mg Discontinued Medications Enoxaparin Sodium (Lovenox) 40 mg SUBCUT Q24H [facility] Last Admin: 01/04/19 15:04 Dose: Not Given Enoxaparin Sodium (Lovenox) 90 mg SUBCUT Q12H [facility] Last Admin: 01/04/19 16:16 Dose: Not Given Enoxaparin Sodium (Lovenox) 90 mg SUBCUT Q12H [facility] Last Admin: 01/05/19 06:02 Dose: 90 mg Potassium Chloride 20 meq/ (Premix) 50 mls @ 25 mls/hr IV Q2H GAIL Stop: 01/04/19 17:44 Last Admin: 01/04/19 22:28 Dose: 25 mls/hr Magnesium Sulfate 2 gm/ Premix 50 mls @ 25 mls/hr IV ONETIME ONE Stop: 01/04/19 16:20 Last Admin: 01/04/19 19:05 Dose: 25 mls/hr Potassium Chloride 20 meq/ (Premix) 50 mls @ 25 mls/hr IV ONETIME ONE Stop: 01/05/19 00:29 Last Admin: 01/04/19 22:31 Dose: Not Given Iopamidol (Isovue-300 (61%)) 100 ml IVPUSH ONETIME ONE Stop: 01/04/19 15:13 Last Admin: 01/04/19 16:30 Dose: 100 ml - Exam Quality Assessment: DVT Prophylaxis, Skin Breakdown General: Alert, Cooperative, No Acute Distress Lungs: Normal Respiratory Effort, Decreased Breath Sounds, Crackles Cardiovascular: Regular Rate, Regular Rhythm GI/Abdominal Exam: Soft, Non-Tender, Abnormal Bowel Sounds (HYPOACTIVE) Extremities: Pedal Edema (RLE), Limited Range of Motion (RLE/ANKLE), Other (+2 DEPENDENT PITTING EDEMA RLE). No: Increased Warmth Skin: Warm, Dry, Other (WEEPING RLE) Wound/Incisions: Drainage (RLE) Neurological: No New Focal Deficit - Problem List Review Problem List Initiated/Reviewed/Updated: Yes - My Orders Last 24 Hours: My Active Orders 01/04/19 13:25 Bedrest Bedside Commode [RC] 08,20 Height and Weight [RC] 07 May Shower [RC] .PRN Consult to Case Management/Smoking Pipe Repairer [CONS] Routine OT Evaluation and Treatment [CONS] Routine PT Evaluation and Treatment [CONS] Routine Resuscitation Status Routine 01/04/19 13:27 Patient Status [ADT] Routine Oxygen Therapy [RC] .PRN VTE/DVT Education [RC] .PRN Vital Signs [RC] 02,06,10,14,18,22 01/04/19 13:28 Intake and Output [RC] 06,18 01/04/19 13:29 Cardiac Monitoring [RC] 02,06,10,14,18,22 01/04/19 13:45 Pharmacy Consult [Consult to Pharmacy] 1 each .XX ASDIRECTED Sodium Chloride 0.9% [Normal Saline] 1,000 ml IV ASDIRECTED 01/04/19 15:22 Accu Check [Blood Glucose Check, Bedside] [RC] 07,11,17,20 01/04/19 18:00 Carvedilol [Coreg] 3.125 mg PO BIDM Insulin Regular, Human [HumuLIN R] See Protocol SUBCUT TIDMEALS 01/04/19 20:00 Warfarin [Coumadin] 5 mg PO BEDTIME 01/04/19 23:50 Acetaminophen [Tylenol Extra Strength] 1,000 mg PO Q6H PRN 01/05/19 00:50 EKG 12 Lead [EKG Documentation Completion] [RC] STAT 01/05/19 08:00 amLODIPine [Norvasc] 2.5 mg PO DAILY 01/05/19 12:58 Furosemide [Lasix] 40 mg IV ONETIME ONE 01/05/19 12:59 Weight bearing status [OM.PC] Routine 01/05/19 13:00 Potassium Chloride Riders [KCL 20 MEQ in Water 50 ML] 20 meq Premix Bag 1 bag IV Q2H 01/05/19 20:00 Enoxaparin [Lovenox] 80 mg SUBCUT BID 01/06/19 05:11 BASIC METABOLIC PANEL,BMP [CHEM] Routine CBC WITH AUTO DIFF [HEME] Routine - Assessment Assessment:: Acute exacerbation of chronic congestive heart failure Pulmonary edema Fluid retention Uncontrolled diabetes type 2 Hypokalemia Hypomagnesemia Chronic atrial fibrillation Sinoatrial node dysfunction Essential hypertension Mixed hyperlipidemia - Plan Plan:: Hospital day #2 for a 83-year-old female patient with a past medical history of congestive heart failure, atrial fibrillation, essential hypertension, diabetes type 2, coronary artery disease is admitted to the acute care floor at [facility] for a primary diagnosis of acute exacerbation of congestive heart failure, pulmonary edema, fluid retention, uncontrolled diabetes type 2, hypokalemia, hypomagnesemia, and malnutrition. Will give an additional 40 meq of KCL today followed by 40 mg of IV Lasix. K level improving; Mag level normal today. The patient CT scan of her chest was negative for any pulmonary embolus. The CT scan showed pulmonary edema. We will hold the patient's home insulins at this time and continue the patient on high-dose sliding scale. Since the patient has not been on her medications we will reintroduce them slowly. The patient will be started on low-dose Coreg twice daily as well as low-dose Norvasc. We will hold all the other patient's medications. We will place the patient denied Cam Walker boot and weightbearing as tolerated. If not able to tolerate CAM walker, patient will be weight baring as tolerated with a walker. Continue physical and occupational therapy as well as case management for discharge planning, possible retirement placement depending upon how the patient does. We will also consider guardianship for the patient due to her malnutrition and home living situation. The patient is a code 1. The patient will be transferred to a high-level care should the need arise. Patient was started on Coumadin bridged with Lovenox per pharmacy for anticoagulation. I do anticipate the patient to be admitted at least 3-4 days. Recheck labs tomorrow. If potassium levels hold, will continue with IV Lasix and switch to PO as able. NOTE: This patient was seen and examined by me as an [facility] provider.
[2019-01-05] MEDS: Sodium Chloride 0.9% 1,000 ML IV SCH (14:13)
[2019-01-05] MEDS: Potassium Chloride Riders 20 MEQ in Premix Bag 1 BAG IV SCH ×2 (14:13→15:26)
[2019-01-05] MEDS: Digoxin 125 MCG Tab PO SCH (17:15)
[2019-01-05] MEDS: Warfarin 5 MG Tab PO SCH (21:12)
[2019-01-05] MEDS: Enoxaparin 80 MG/0.8 ML Syringe SUBCUT SCH (21:12)
[2019-01-05] MEDS: Acetaminophen 500 MG Tab PO PRN (21:12)
[2019-01-06 08:16] LABS: CHLORIDE,CL 105 mmol/L (54-184); SODIUM,NA 145 mmol/L (69-191)
[2019-01-06] MEDS: Carvedilol 3.125 MG Tab PO SCH ×2 (08:17→18:00)
[2019-01-06] MEDS: amLODIPine 2.5 MG Tab PO SCH (08:17)
[2019-01-06] MEDS: Enoxaparin 80 MG/0.8 ML Syringe SUBCUT SCH ×2 (08:18→19:19)
[2019-01-06] MEDS: Digoxin 125 MCG Tab PO SCH (08:18)
[2019-01-06 08:19] LABS: ANION GAP 14.7 mmol/L (10-20)
[2019-01-06] MEDS: Insulin Regular, Human 100 Units/ML 3 ML Vial SUBCUT SCH ×3 (08:21→17:59)
[2019-01-06] MEDS: Sodium Chloride 0.9% 1,000 ML IV SCH (10:04)
--- NOTE | 2019-01-06 12:57 | PCM.PN ---
- General Info Date of Service: 01/06/19 Admission Dx/Problem (Free Text): Admission Diagnosis/Problem Admission Diagnosis/Problem Acute exacerbation of chronic congestive heart failure Hypokalemia Hypomagnesemia Fluid retention Nondisplaced distal fibular metaphysis fracture, right Malnutrition Uncontrolled diabetes type 2 Acute pulmonary edema secondary to CHF Subjective Update: Pt states she is still feeling SOB. Denies pain Functional Status: Reports: Pain Controlled - Review of Systems General: Reports: Weakness HEENT: Reports: No Symptoms Pulmonary: Reports: Shortness of Breath Cardiovascular: Reports: Dyspnea on Exertion, Edema Gastrointestinal: Reports: No Symptoms - Patient Data Vitals - Most Recent: Last Vital Signs Temp 37.0 C 01/06/19 10:49 Pulse 87 01/06/19 10:49 Resp 16 01/06/19 10:49 BP 151/98 H 01/06/19 10:49 Pulse Ox 94 L 01/06/19 10:49 Weight - Most Recent: 87.09 kg I&O - Last 24 Hours: Intake & Output 01/05/19 01/06/19 01/06/19 22:59 06:59 14:59 Intake Total 940 602 240 Output Total 1000 200 100 Balance -60 402 140 Lab Results Last 24 Hours: Laboratory Results - last 24 hr 01/06/19 01/06/19 01/06/19 Range/Units 07:48 07:48 07:48 WBC 6.3 (4.0-10.0) x10^3/uL RBC 3.82 L (4.00-5.50) x10^6/uL Hgb 12.8 (12.0-16.0) g/dL Hct 39.4 (33.0-47.0) % MCV 103.1 H (78.0-93.0) fL MCH 33.5 H (26.0-32.0) pg MCHC 32.5 (32.0-36.0) g/dL RDW Coeff of [place] 14.9 (10.0-15.0) % Plt Count 270 (130-400) x10^3/uL Neut % (Auto) 72.5 (50.0-80.0) % Lymph % (Auto) 12.6 L (25.0-50.0) % [place] % (Auto) 8.6 (2.0-11.0) % Eos % (Auto) 6.0 H (0.0-4.0) % Baso % (Auto) 0.3 (0.2-1.2) % PT 13.8 H (10.0-12.8) SEC INR 1.2 L (2.0-3.5) Sodium 145 (69-191) mmol/L Potassium 3.7 (1.5-9.9) mmol/L Chloride 105 (54-184) mmol/L Carbon Dioxide 29 (21-32) mmol/L Anion Gap 14.7 (10-20) mmol/L BUN 19 H (7-18) mg/dL Creatinine 0.8 (0.55-1.02) mg/dL Est Cr Clr Drug Dosing 47.95 mL/min Estimated GFR (MDRD) > 60 Glucose 165 H (74-106) mg/dL Calcium 8.4 L (8.5-10.1) mg/dL Elias Results Last 24 Hours: Microbiology 01/04/19 11:38 Aerobic Blood Culture - Preliminary Blood - Venous NO GROWTH AFTER 2 DAYS Anaerobic Blood Culture - Preliminary NO GROWTH AFTER 2 DAYS 01/04/19 11:45 Aerobic Blood Culture - Preliminary Blood - Venous - Lab Draw NO GROWTH AFTER 2 DAYS Anaerobic Blood Culture - Preliminary NO GROWTH AFTER 2 DAYS 01/04/19 11:00 Wound Culture - Preliminary Skin / Skin Scrapings - Leg, Right Staphylococcus Aureus Staphylococcus Coagulase Neg Med Orders - Current: Current Medications Acetaminophen (Tylenol Extra Strength) 1,000 mg PO Q6H PRN PRN Reason: Pain Last Admin: 01/05/19 21:12 Dose: 1,000 mg Amlodipine Besylate (Norvasc) 2.5 mg PO DAILY REPLACED BY [facility] Last Admin: 01/06/19 08:17 Dose: 2.5 mg Amoxicillin/Clavulanate Potassium (Augmentin 875 Mg/125 Mg) 1 tab PO Q12HR REPLACED BY [facility] Stop: 01/16/19 20:01 Carvedilol (Coreg) 3.125 mg PO BIDM REPLACED BY [facility] Last Admin: 01/06/19 08:17 Dose: 3.125 mg Digoxin (Lanoxin) 125 mcg PO DAILY REPLACED BY [facility] Last Admin: 01/06/19 08:18 Dose: 125 mcg Enoxaparin Sodium (Lovenox) 80 mg SUBCUT BID REPLACED BY [facility] Last Admin: 01/06/19 08:18 Dose: 80 mg Sodium Chloride (Normal Saline) 1,000 mls @ 50 mls/hr IV ASDIRECTED REPLACED BY [facility] Last Admin: 01/06/19 10:04 Dose: 50 mls/hr Insulin Human Regular (Humulin R) 0 unit SUBCUT TIDMEALS REPLACED BY [facility]; Protocol Last Admin: 01/06/19 11:49 Dose: 6 unit Pharmacy Consult (Consult To Pharmacy) 1 each .XX ASDIRECTED GAIL Sodium Chloride (Saline Flush) 10 ml FLUSH ASDIRECTED PRN PRN Reason: Keep Vein Open Last Admin: 01/04/19 16:21 Dose: 10 ml Warfarin Sodium (Coumadin) 5 mg PO BEDTIME REPLACED BY [facility] Last Admin: 01/05/19 21:12 Dose: 5 mg Discontinued Medications Enoxaparin Sodium (Lovenox) 40 mg SUBCUT Q24H REPLACED BY [facility] Last Admin: 01/04/19 15:04 Dose: Not Given Enoxaparin Sodium (Lovenox) 90 mg SUBCUT Q12H REPLACED BY [facility] Last Admin: 01/04/19 16:16 Dose: Not Given Enoxaparin Sodium (Lovenox) 90 mg SUBCUT Q12H REPLACED BY [facility] Last Admin: 01/05/19 06:02 Dose: 90 mg Furosemide (Lasix) 40 mg IV ONETIME ONE Stop: 01/05/19 12:59 Last Admin: 01/05/19 15:22 Dose: 40 mg Potassium Chloride 20 meq/ (Premix) 50 mls @ 25 mls/hr IV Q2H REPLACED BY [facility] Stop: 01/04/19 17:44 Last Admin: 01/04/19 22:28 Dose: 25 mls/hr Magnesium Sulfate 2 gm/ Premix 50 mls @ 25 mls/hr IV ONETIME ONE Stop: 01/04/19 16:20 Last Admin: 01/04/19 19:05 Dose: 25 mls/hr Potassium Chloride 20 meq/ (Premix) 50 mls @ 25 mls/hr IV ONETIME ONE Stop: 01/05/19 00:29 Last Admin: 01/04/19 22:31 Dose: Not Given Potassium Chloride 20 meq/ (Premix) 50 mls @ 50 mls/hr IV Q2H REPLACED BY [facility] Stop: 01/05/19 15:59 Last Admin: 01/05/19 15:26 Dose: 50 mls/hr Iopamidol (Isovue-300 (61%)) 100 ml IVPUSH ONETIME ONE Stop: 01/04/19 15:13 Last Admin: 01/04/19 16:30 Dose: 100 ml - Exam Quality Assessment: Supplemental Oxygen General: Alert, Oriented (Only oriented x1 (self)) Neck: Supple Lungs: Rales Cardiovascular: Irregular Rhythm GI/Abdominal Exam: Soft Extremities: Redness Skin: Warm - Problem List & Annotations (1) Cognitive impairment SNOMED Code(s): 347181198 Code(s): R41.89 - OTH SYMPTOMS AND SIGNS W COGNITIVE FUNCTIONS AND AWARENESS Status: Chronic Current Visit: Yes (2) Atrial fibrillation SNOMED Code(s): 53684407 Code(s): I48.91 - UNSPECIFIED ATRIAL FIBRILLATION Status: Acute Current Visit: Yes (3) CHF, Congestive heart failure SNOMED Code(s): 69843420 Code(s): I50.9 - HEART FAILURE, UNSPECIFIED Status: Acute Current Visit: Yes (4) Fracture, fibula SNOMED Code(s): 21572783 Code(s): S82.409A - UNSP FRACTURE OF SHAFT OF UNSP FIBULA, INIT FOR CLOS FX Status: Acute Current Visit: Yes (5) Hypokalemia SNOMED Code(s): 81786617 Code(s): E87.6 - HYPOKALEMIA Status: Resolved Current Visit: Yes (6) Diabetes mellitus type II, uncontrolled SNOMED Code(s): 881233027, 444094125 Code(s): E11.65 - TYPE 2 DIABETES MELLITUS WITH HYPERGLYCEMIA Status: Acute Current Visit: Yes - Problem List Review Problem List Initiated/Reviewed/Updated: Yes - My Orders Last 24 Hours: My Active Orders 01/06/19 07:48 VITAMIN B12 [REF] Routine 01/06/19 11:03 FOLATE [REF] Routine 01/06/19 11:07 Dietary Supplements [RC] BIDMEALS 01/06/19 20:00 Amoxicillin/Clavulanate K [Augmentin 875 MG/125 MG] 1 tab PO Q12HR - Assessment Assessment:: Acute exacerbation of chronic congestive heart failure Pulmonary edema Fluid retention Uncontrolled diabetes type 2 Hypokalemia Hypomagnesemia Chronic atrial fibrillation Sinoatrial node dysfunction Essential hypertension Mixed hyperlipidemia Macrocytosis - Plan Plan:: Day #3 of hospitalization. Diureses will continue cautiously for volume overload and CHF. Will start antibiotics for treatment of drainage from RLE B12 and Folate ordered for further evaluation of macrocytosis. Will continue with sliding scale insulin for blood sugar treatment pt to bear weight as tolerated -may use walker to off load some weight Have asked nursing staff to re-administer MME. Pt oriented x1. Mini-cog evaluation in clinic last week was 0/5. Thus questioning accuracy of MME administered yesterday.
[2019-01-06] MEDS: Furosemide 20 MG Tab PO SCH (16:47)
[2019-01-06] MEDS: Hydrocortisone 1% Crm 30 GM Tube TOP PRN (16:47)
[2019-01-06] MEDS: Acetaminophen 500 MG Tab PO PRN (16:48)
[2019-01-06] MEDS ORDERED: hydrOXYzine HCl 50 MG/ML SDV IM ONE (18:24)
[2019-01-06] MEDS ORDERED: hydrOXYzine HCl 25 MG Tab PO ONE (19:15)
[2019-01-06] MEDS: Warfarin 5 MG Tab PO SCH (19:20)
[2019-01-06] MEDS: Amoxicillin/Clavulanate K 875-125 MG Tab PO SCH (19:20)
[2019-01-07] MEDS: Acetaminophen 500 MG Tab PO PRN ×3 (04:56→20:20)
[2019-01-07] MEDS: Digoxin 125 MCG Tab PO SCH (08:03)
[2019-01-07] MEDS: Furosemide 20 MG Tab PO SCH ×2 (08:03→16:09)
[2019-01-07] MEDS: Carvedilol 3.125 MG Tab PO SCH ×2 (08:03→17:43)
[2019-01-07] MEDS: Amoxicillin/Clavulanate K 875-125 MG Tab PO SCH ×2 (08:03→20:04)
[2019-01-07] MEDS: amLODIPine 2.5 MG Tab PO SCH (08:03)
[2019-01-07] MEDS: Enoxaparin 80 MG/0.8 ML Syringe SUBCUT SCH ×2 (08:04→20:02)
[2019-01-07] MEDS: Insulin Regular, Human 100 Units/ML 3 ML Vial SUBCUT SCH ×3 (08:10→17:44)
[2019-01-07] MEDS: Hydrocortisone 1% Crm 30 GM Tube TOP PRN (08:11)
[2019-01-07] MEDS ORDERED: hydrOXYzine HCl 25 MG Tab PO ONE (09:53)
--- NOTE | 2019-01-07 10:05 | PCM.PN ---
- General Info Date of Service: 01/07/19 Admission Dx/Problem (Free Text): Admission Diagnosis/Problem Admission Diagnosis/Problem Acute exacerbation of chronic congestive heart failure Hypokalemia Hypomagnesemia Fluid retention Nondisplaced distal fibular metaphysis fracture, right Malnutrition Uncontrolled diabetes type 2 Acute pulmonary edema secondary to CHF Subjective Update: Pt states she is still feeling SOB. Denies pain Functional Status: Reports: Pain Controlled, Tolerating Diet, New Symptoms Pain Score: 0 - Review of Systems General: Denies: Fever, Chills Pulmonary: Reports: Shortness of Breath. Denies: Cough Cardiovascular: Denies: Chest Pain, Palpitations Gastrointestinal: Denies: Abdominal Pain, Nausea, Vomiting Musculoskeletal: Reports: Foot Pain, Joint Pain, Joint Swelling Skin: Reports: Rash Neurological: Reports: Confusion - Patient Data Vitals - Most Recent: Last Vital Signs Temp 97.0 F 01/07/19 06:00 Pulse 87 01/07/19 08:03 Resp 18 01/07/19 06:00 BP 153/80 H 01/07/19 08:03 Pulse Ox 96 01/07/19 06:00 Weight - Most Recent: 191 lb 14.4 oz I&O - Last 24 Hours: Intake & Output 01/06/19 01/07/19 01/07/19 22:59 06:59 14:59 Intake Total 1060 0 240 Output Total 400 500 Balance 660 -500 240 Lab Results Last 24 Hours: Laboratory Results - last 24 hr 01/07/19 Range/Units 07:44 PT 24.1 H D (10.0-12.8) SEC INR 2.1 (2.0-3.5) Elias Results Last 24 Hours: Microbiology 01/04/19 11:00 Wound Culture - Preliminary Skin / Skin Scrapings - Leg, Right Staphylococcus Aureus Staphylococcus Coagulase Neg 01/04/19 11:38 Aerobic Blood Culture - Preliminary Blood - Venous NO GROWTH AFTER 2 DAYS Anaerobic Blood Culture - Preliminary NO GROWTH AFTER 2 DAYS 01/04/19 11:45 Aerobic Blood Culture - Preliminary Blood - Venous - Lab Draw NO GROWTH AFTER 2 DAYS Anaerobic Blood Culture - Preliminary NO GROWTH AFTER 2 DAYS Med Orders - Current: Current Medications Acetaminophen (Tylenol Extra Strength) 1,000 mg PO Q6H PRN PRN Reason: Pain Last Admin: 01/07/19 04:56 Dose: 1,000 mg Amlodipine Besylate (Norvasc) 2.5 mg PO DAILY [facility] Last Admin: 01/07/19 08:03 Dose: 2.5 mg Amoxicillin/Clavulanate Potassium (Augmentin 875 Mg/125 Mg) 1 tab PO Q12HR [facility] Stop: 01/16/19 20:01 Last Admin: 01/07/19 08:03 Dose: 1 tab Carvedilol (Coreg) 3.125 mg PO BIDM [facility] Last Admin: 01/07/19 08:03 Dose: 3.125 mg Digoxin (Lanoxin) 125 mcg PO DAILY [facility] Last Admin: 01/07/19 08:03 Dose: 125 mcg Enoxaparin Sodium (Lovenox) 80 mg SUBCUT BID [facility] Last Admin: 01/07/19 08:04 Dose: 80 mg Furosemide (Lasix) 20 mg PO BIDDIURETIC [facility] Last Admin: 01/07/19 08:03 Dose: 20 mg Hydrocortisone (Hydrocortisone 1% Crm) 0 gm TOP TID PRN PRN Reason: rash Last Admin: 01/07/19 08:11 Dose: 1 applic Hydroxyzine HCl (Atarax) 25 mg PO ONETIME ONE Stop: 01/07/19 09:54 Insulin Human Regular (Humulin R) 0 unit SUBCUT TIDMEALS [facility]; Protocol Last Admin: 01/07/19 08:10 Dose: 3 unit Pharmacy Consult (Consult To Pharmacy) 1 each .XX ASDIRECTED [facility] Sodium Chloride (Saline Flush) 10 ml FLUSH ASDIRECTED PRN PRN Reason: Keep Vein Open Last Admin: 01/04/19 16:21 Dose: 10 ml Warfarin Sodium (Coumadin) 5 mg PO BEDTIME [facility] Last Admin: 01/06/19 19:20 Dose: 5 mg Discontinued Medications Enoxaparin Sodium (Lovenox) 40 mg SUBCUT Q24H [facility] Last Admin: 01/04/19 15:04 Dose: Not Given Enoxaparin Sodium (Lovenox) 90 mg SUBCUT Q12H [facility] Last Admin: 01/04/19 16:16 Dose: Not Given Enoxaparin Sodium (Lovenox) 90 mg SUBCUT Q12H [facility] Last Admin: 01/05/19 06:02 Dose: 90 mg Furosemide (Lasix) 40 mg IV ONETIME ONE Stop: 01/05/19 12:59 Last Admin: 01/05/19 15:22 Dose: 40 mg Hydroxyzine HCl (Vistaril) 25 mg IM ONETIME ONE Stop: 01/06/19 18:25 Last Admin: 01/06/19 19:21 Dose: Not Given Hydroxyzine HCl (Atarax) 25 mg PO ONETIME ONE Stop: 01/06/19 19:16 Last Admin: 01/06/19 19:20 Dose: 25 mg Sodium Chloride (Normal Saline) 1,000 mls @ 50 mls/hr IV ASDIRECTED [facility] Last Admin: 01/06/19 10:04 Dose: 50 mls/hr Potassium Chloride 20 meq/ (Premix) 50 mls @ 25 mls/hr IV Q2H [facility] Stop: 01/04/19 17:44 Last Admin: 01/04/19 22:28 Dose: 25 mls/hr Magnesium Sulfate 2 gm/ Premix 50 mls @ 25 mls/hr IV ONETIME ONE Stop: 01/04/19 16:20 Last Admin: 01/04/19 19:05 Dose: 25 mls/hr Potassium Chloride 20 meq/ (Premix) 50 mls @ 25 mls/hr IV ONETIME ONE Stop: 01/05/19 00:29 Last Admin: 01/04/19 22:31 Dose: Not Given Potassium Chloride 20 meq/ (Premix) 50 mls @ 50 mls/hr IV Q2H [facility] Stop: 01/05/19 15:59 Last Admin: 01/05/19 15:26 Dose: 50 mls/hr Iopamidol (Isovue-300 (61%)) 100 ml IVPUSH ONETIME ONE Stop: 01/04/19 15:13 Last Admin: 01/04/19 16:30 Dose: 100 ml - Exam Quality Assessment: DVT Prophylaxis, Skin Breakdown General: Alert, Cooperative, No Acute Distress Lungs: Normal Respiratory Effort, Decreased Breath Sounds, Crackles, Rales Cardiovascular: Regular Rate, No Murmurs, Irregular Rhythm GI/Abdominal Exam: Normal Bowel Sounds, Soft, Non-Tender Extremities: Pedal Edema, Joint Swelling, Limited Range of Motion, Other (LLE and ankle edema seems to be improving; [employer] to palpation) Peripheral Pulses: 1+: Posterior Tibial (L), Posterior Tibial (R), Dorsalis Pedis (L), Dorsalis Pedis (R) Skin: Warm, Dry, Rash Wound/Incisions: No Drainage, Erythema Improving Neurological: No New Focal Deficit - Problem List Review Problem List Initiated/Reviewed/Updated: Yes - My Orders Last 24 Hours: My Active Orders 01/07/19 09:53 hydrOXYzine HCl [Atarax] 25 mg PO ONETIME ONE - Assessment Assessment:: Acute exacerbation of chronic congestive heart failure Pulmonary edema Fluid retention Uncontrolled diabetes type 2 Hypokalemia Hypomagnesemia Chronic atrial fibrillation Sinoatrial node dysfunction Essential hypertension Mixed hyperlipidemia Macrocytosis - Plan Plan:: Day #4 of hospitalization. Diureses will continue cautiously for volume overload and CHF. Will start antibiotics for treatment of drainage from RLE B12 and Folate ordered for further evaluation of macrocytosis. Will continue with sliding scale insulin for blood sugar treatment Pt to bear weight as tolerated -may use walker to off load some weight Have asked nursing staff to re-administer MME. Pt oriented x1. Mini-cog evaluation in clinic last week was 0/5. Thus questioning accuracy of MME administered yesterday. Anticipate status change to Swing Bed tomorrow. Continue with same medications. Patient may use her own shoe when ambulating with a walker.
[2019-01-07] MEDS: Warfarin 5 MG Tab PO SCH (20:03)
[2019-01-08] MEDS: Amoxicillin/Clavulanate K 875-125 MG Tab PO SCH (08:55)
[2019-01-08] MEDS: amLODIPine 2.5 MG Tab PO SCH (08:55)
[2019-01-08] MEDS: Carvedilol 3.125 MG Tab PO SCH (08:56)
[2019-01-08] MEDS: Furosemide 20 MG Tab PO SCH (08:56)
[2019-01-08] MEDS: Digoxin 125 MCG Tab PO SCH (08:56)
[2019-01-08] MEDS: Enoxaparin 80 MG/0.8 ML Syringe SUBCUT SCH (08:56)
[2019-01-08] MEDS: Acetaminophen 500 MG Tab PO PRN (08:56)
[2019-01-08] MEDS: Insulin Regular, Human 100 Units/ML 3 ML Vial SUBCUT SCH ×2 (08:57→12:35)
--- NOTE | 2019-01-08 12:47 | PCM.DCSUM1 ---
Discharge Summary - Hospital Course HPI Initial Comments: 82-year-old female patient seen in clinic on December 28, 2018 for a chief complaint of right ankle pain. The patient had denied any injury at that time. X -ray of the right ankle at that time did show a fracture. The patient was contacted via letter so her right foot to be placed in a boot, however she did not return to the clinic. The patient was seen again in clinic last week for swelling of the right calf and right lower extremity, painful ankle, and increasing shortness of breath. The patient is somewhat of a poor historian and could not remember when her shortness of breath started. Given the provider's examination, it was felt the patient needed to be seen in emergency room due to her current symptoms. The patient is also had a 16 pound weight loss over the past week. Workup in the emergency department at [facility] showed a BNP of 8900, potassium of 2.9, pulmonary edema on chest x-ray, and again the nondisplaced distal fibular fracture. The patient has blistering of the right lower extremity. According to the patient's clinical records, the patient had stopped all of her medications over 8 months ago. The patient has a history of atrial fibrillation and has not been taking her Coumadin placing her at great risk of a pulmonary embolus or DVT. The patient also has not been taking her insulin or antihypertensive medications. The patient's last visit in clinic was January 2018. The patient also has a pacemaker and has not been following up with the pacemaker clinic. The patient was admitted to the acute care floor at [facility] for acute exacerbation of CHF, right fibular fracture, uncontrolled diabetes, malnutrition , and pulmonary edema. Diagnosis: Stroke: No Modified [place] Scale: No Symptoms at All Modified [place] Scale Score: 0 - Discharge Data Discharge Date: 01/08/19 Discharge Disposition: DC/Tfer W/I Hosp To Swing 61 Condition: Fair - Referral to Home Health Primary Care Physician: Jovita Cuba DO - Discharge Diagnosis/Problem(s) (1) Atrial fibrillation SNOMED Code(s): 05727964 ICD Code: I48.91 - UNSPECIFIED ATRIAL FIBRILLATION Status: Acute Priority : Low Current Visit: No Qualifiers: Atrial fibrillation type: chronic Qualified Code(s): I48.2 - Chronic atrial fibrillation (2) CHF, Congestive heart failure SNOMED Code(s): 31327120 ICD Code: I50.9 - HEART FAILURE, UNSPECIFIED Status: Acute Priority: High Current Visit: Yes (3) Diabetes mellitus type II, uncontrolled SNOMED Code(s): 724850943, 914908658 ICD Code: E11.65 - TYPE 2 DIABETES MELLITUS WITH HYPERGLYCEMIA Status: Chronic Priority: Medium Current Visit: No Qualifiers: Glycemic state: with hyperglycemia Qualified Code(s): E11.65 - Type 2 diabetes mellitus with hyperglycemia (4) Fracture, fibula SNOMED Code(s): 08546632 ICD Code: S82.409A - UNSP FRACTURE OF SHAFT OF UNSP FIBULA, INIT FOR CLOS FX Status: Acute Priority: High Current Visit: Yes Qualifiers: Encounter type: initial encounter Fracture type: closed Fracture alignment: nondisplaced Laterality: right (5) Cognitive impairment SNOMED Code(s): 425649576 ICD Code: R41.89 - OTH SYMPTOMS AND SIGNS W COGNITIVE FUNCTIONS AND AWARENESS Status: Chronic Priority: Medium Current Visit: No (6) Weakness SNOMED Code(s): 44367640 ICD Code: R53.1 - WEAKNESS Status: Acute Priority: Medium Current Visit : Yes (7) Physical deconditioning SNOMED Code(s): 24569762444637 ICD Code: R53.81 - OTHER MALAISE Status: Acute Priority: Medium Current Visit: Yes - Patient Summary/Data Operative Procedure(s) Performed: None Consults: Consultations 01/04/19 13:25 Consult to Case Management/Court Recording Monitor [CONS] Routine OT Evaluation and Treatment [CONS] Routine PT Evaluation and Treatment [CONS] Routine Labs Pending at D/C: INR Recommended Follow-up Testing/Procedures: Repeat Right Ankle/Foot xray INR Planned Operative Procedure(s) after DC: None - Patient Instructions Diet: Diabetic Diet Fluid Restriction: 1500 mL Activity, Other: per PT recommendations Driving: Do Not Drive Showering/Bathing: May Shower Wound/Incision Care: Change Dressing Daily Notify Provider of: Fever, Increased Pain, Swelling and Redness, Drainage - Discharge Plan *PRESCRIPTION DRUG MONITORING PROGRAM REVIEWED*: Not Applicable *COPY OF PRESCRIPTION DRUG MONITORING REPORT IN PATIENT AMY: Not Applicable Prescriptions/Med Rec: Acetaminophen [Masophen] 2 tab PO Q6H PRN 30 Days #30 tablet PRN Reason: Pain/Fever Hydrocortisone 28.4 gm TOP DAILY PRN #1 tube PRN Reason: Rash Home Medications: Home Meds Allopurinol [Zyloprim] 300 mg PO DAILY 01/12/14 [History] Digoxin [Digox] 125 mcg PO DAILY 01/12/14 [History] Furosemide [Lasix] 40 mg PO DAILY 01/12/14 [History] Rosuvastatin [Crestor] 20 mg PO DAILY 01/12/14 [History] Warfarin [Coumadin] 1.25 mg PO MOTH 01/12/14 [History] Insulin Glargine,Hum.Rec.Anlog [Lantus Solostar] 95 unit SQ BEDTIME 01/04/19 [ History] Insulin Lispro [Humalog] 15 unit SQ TIDMEALS 01/04/19 [History] Warfarin [Coumadin] 2.5 mg PO SUTUWEFRSA 01/04/19 [History] Acetaminophen [Masophen] 2 tab PO Q6H PRN 30 Days #30 tablet 01/08/19 [Rx] Acetaminophen [Tylenol Extra Strength] 1,000 mg PO Q6H PRN tablet 01/08/19 [Rx] Amoxicillin/Clavulanate K [Augmentin 875-125 MG] 1 tab PO Q12HR tablet [Rx] Carvedilol [Coreg] 3.125 mg PO BIDM tablet 01/08/19 [Rx] Hydrocortisone 28.4 gm TOP DAILY PRN #1 tube 01/08/19 [Rx] Hydrocortisone [Hydrocortisone 1% Crm] 0 gm TOP TID PRN tube 01/08/19 [Rx] Sodium Chloride 0.9% [Saline Flush] 10 ml FLUSH ASDIRECTED PRN syringe [Rx] amLODIPine [Norvasc] 2.5 mg PO DAILY tablet 01/08/19 [Rx] Oxygen Therapy Mode: Room Air Referrals: Jovita Cuba DO [Primary Care Provider] - - Discharge Summary/Plan Comment DC Time >30 min.: No Discharge Summary/Plan Comment: Patient will be admitted to swing bed for rehab with PT 2/2 weakness and deconditioning. Continue acute medications the same. Will stop SSI and restart home insulins with same doses. Activity per PT. Diet same. Full Code. DVT with Coumadin. Awaiting ultrasound of RLE to r/o DVT. If blood pressure tolerates, with increase Coreg and Amlodipine back to original does; will monitor. Continue with guardianship per Case Management. The admission H & P for acute stay in up to date and current and will be used for admission H & P to swing bed. - General Info Date of Service: 01/08/19 Admission Dx/Problem (Free Text: Admission Diagnosis/Problem Admission Diagnosis/Problem Acute exacerbation of chronic congestive heart failure Hypokalemia Hypomagnesemia Fluid retention Nondisplaced distal fibular metaphysis fracture, right Malnutrition Uncontrolled diabetes type 2 Acute pulmonary edema secondary to CHF Weakness Deconditioning Subjective Update: Pt states she is still feeling SOB. Denies pain Functional Status: Reports: Pain Controlled, Tolerating Diet, New Symptoms Numeric/FACES Score: 0 - Review of Systems General: Reports: Weakness. Denies: Fever, Chills Pulmonary: Reports: Shortness of Breath. Denies: Cough Cardiovascular: Reports: Edema. Denies: Chest Pain, Palpitations Gastrointestinal: Denies: Abdominal Pain, Nausea, Vomiting Skin: Reports: Other (open area to anterior RLE ) Neurological: Reports: Confusion - Patient Data Vitals - Most Recent: Last Vital Signs Temp 97.8 F 01/08/19 06:00 Pulse 73 01/08/19 08:56 Resp 16 01/08/19 01:07 BP 114/90 01/08/19 08:56 Pulse Ox 95 01/08/19 01:07 Weight - Most Recent: 189 lb 12.8 oz I&O - Last 24 hours: Intake & Output 01/07/19 01/08/19 01/08/19 22:59 06:59 14:59 Intake Total 900 240 Output Total 600 300 Balance 300 -300 240 Lab Results - Last 24 hrs: Laboratory Results - last 24 hr 01/05/19 01/05/19 01/05/19 Range/Units 05:32 09:59 12:20 PT (10.0-12.8) SEC INR (2.0-3.5) POC Glucose 109 H 121 H 157 H (74-106) mg/dL 01/05/19 01/05/19 01/06/19 Range/Units 17:53 21:27 06:27 PT (10.0-12.8) SEC INR (2.0-3.5) POC Glucose 165 H 177 H 148 H (74-106) mg/dL 01/06/19 01/06/19 01/07/19 Range/Units 11:47 16:46 06:28 PT (10.0-12.8) SEC INR (2.0-3.5) POC Glucose 220 H 165 H 147 H (74-106) mg/dL 01/07/19 01/07/19 01/07/19 Range/Units 08:09 11:30 17:42 PT (10.0-12.8) SEC INR (2.0-3.5) POC Glucose 171 H 203 H 101 (74-106) mg/dL 01/07/19 01/08/19 01/08/19 Range/Units 20:01 06:00 06:26 PT 37.0 H D (10.0-12.8) SEC INR 3.3 (2.0-3.5) POC Glucose 175 H 125 H (74-106) mg/dL YOLANDA Results - Last 24 hrs: Microbiology 01/04/19 11:38 Aerobic Blood Culture - Preliminary Blood - Venous NO GROWTH AFTER 4 DAYS Anaerobic Blood Culture - Preliminary NO GROWTH AFTER 4 DAYS 01/04/19 11:45 Aerobic Blood Culture - Preliminary Blood - Venous - Lab Draw NO GROWTH AFTER 4 DAYS Anaerobic Blood Culture - Preliminary NO GROWTH AFTER 4 DAYS 01/04/19 11:00 Wound Culture - Preliminary Skin / Skin Scrapings - Leg, Right Staphylococcus Aureus Staphylococcus Coagulase Neg Staphylococcus Aureus#2 01/04/19 11:00 Bacterial Identification - Preliminary Skin / Skin Scrapings - Leg, Right Staphylococcus Aureus Staphylococcus Aureus#2 Med Orders - Current: Current Medications Acetaminophen (Tylenol Extra Strength) 1,000 mg PO Q6H PRN PRN Reason: Pain Last Admin: 01/08/19 08:56 Dose: 1,000 mg Amlodipine Besylate (Norvasc) 2.5 mg PO DAILY [facility] Last Admin: 01/08/19 08:55 Dose: 2.5 mg Amoxicillin/Clavulanate Potassium (Augmentin 875 Mg/125 Mg) 1 tab PO Q12HR [facility] Stop: 01/16/19 20:01 Last Admin: 01/08/19 08:55 Dose: 1 tab Carvedilol (Coreg) 3.125 mg PO BIDM [facility] Last Admin: 01/08/19 08:56 Dose: 3.125 mg Digoxin (Lanoxin) 125 mcg PO DAILY [facility] Last Admin: 01/08/19 08:56 Dose: 125 mcg Furosemide (Lasix) 20 mg PO BIDDIURETIC [facility] Last Admin: 01/08/19 08:56 Dose: 20 mg Hydrocortisone (Hydrocortisone 1% Crm) 0 gm TOP TID PRN PRN Reason: rash Last Admin: 01/07/19 08:11 Dose: 1 applic Insulin Human Regular (Humulin R) 0 unit SUBCUT TIDMEALS [facility]; Protocol Last Admin: 01/08/19 12:35 Dose: 6 unit Pharmacy Consult (Consult To Pharmacy) 1 each .XX ASDIRECTED [facility] Sodium Chloride (Saline Flush) 10 ml FLUSH ASDIRECTED PRN PRN Reason: Keep Vein Open Last Admin: 01/04/19 16:21 Dose: 10 ml Warfarin Sodium (Coumadin) 2.5 mg PO BEDTIME [facility] Discontinued Medications Enoxaparin Sodium (Lovenox) 40 mg SUBCUT Q24H [facility] Last Admin: 01/04/19 15:04 Dose: Not Given Enoxaparin Sodium (Lovenox) 90 mg SUBCUT Q12H [facility] Last Admin: 01/04/19 16:16 Dose: Not Given Enoxaparin Sodium (Lovenox) 90 mg SUBCUT Q12H [facility] Last Admin: 01/05/19 06:02 Dose: 90 mg Enoxaparin Sodium (Lovenox) 80 mg SUBCUT BID [facility] Last Admin: 01/08/19 08:56 Dose: 80 mg Furosemide (Lasix) 40 mg IV ONETIME ONE Stop: 01/05/19 12:59 Last Admin: 01/05/19 15:22 Dose: 40 mg Hydroxyzine HCl (Vistaril) 25 mg IM ONETIME ONE Stop: 01/06/19 18:25 Last Admin: 01/06/19 19:21 Dose: Not Given Hydroxyzine HCl (Atarax) 25 mg PO ONETIME ONE Stop: 01/06/19 19:16 Last Admin: 01/06/19 19:20 Dose: 25 mg Hydroxyzine HCl (Atarax) 25 mg PO ONETIME ONE Stop: 01/07/19 09:54 Last Admin: 01/07/19 11:31 Dose: 25 mg Sodium Chloride (Normal Saline) 1,000 mls @ 50 mls/hr IV ASDIRECTED [facility] Last Admin: 01/06/19 10:04 Dose: 50 mls/hr Potassium Chloride 20 meq/ (Premix) 50 mls @ 25 mls/hr IV Q2H [facility] Stop: 01/04/19 17:44 Last Admin: 01/04/19 22:28 Dose: 25 mls/hr Magnesium Sulfate 2 gm/ Premix 50 mls @ 25 mls/hr IV ONETIME ONE Stop: 01/04/19 16:20 Last Admin: 01/04/19 19:05 Dose: 25 mls/hr Potassium Chloride 20 meq/ (Premix) 50 mls @ 25 mls/hr IV ONETIME ONE Stop: 01/05/19 00:29 Last Admin: 01/04/19 22:31 Dose: Not Given Potassium Chloride 20 meq/ (Premix) 50 mls @ 50 mls/hr IV Q2H [facility] Stop: 01/05/19 15:59 Last Admin: 01/05/19 15:26 Dose: 50 mls/hr Iopamidol (Isovue-300 (61%)) 100 ml IVPUSH ONETIME ONE Stop: 01/04/19 15:13 Last Admin: 01/04/19 16:30 Dose: 100 ml Warfarin Sodium (Coumadin) 5 mg PO BEDTIME [facility] Last Admin: 01/07/19 20:03 Dose: 5 mg - Exam Quality Assessment: Reports: DVT Prophylaxis, Skin Breakdown General: Reports: Alert, Cooperative, No Acute Distress Lungs: Reports: Normal Respiratory Effort, Decreased Breath Sounds, Rales Cardiovascular: Reports: Regular Rate, Irregular Rhythm GI/Abdominal Exam: Normal Bowel Sounds, Soft, Non-Tender Extremities: Pedal Edema (+1 dependent pitting RLE), Limited Range of Motion ( due to pain 2/2 to fracture) Skin: Reports: Warm, Dry Wound/Incisions: Reports: No Drainage, Erythema Improving Neurological: Reports: No New Focal Deficit *Q Meaningful Use (DIS) - VTE *Q VTE Mechanical Contraindications *Q: At Risk for Falls
--- NOTE | 2019-01-08 12:55 | US ---
[id number] US/US Arterial Venous LE Right Exam: US venous LE Right Clinical Data: FIBULAR FRACTURE COMPARISON: CORRELATION IS MADE WITH THE RECENT CAT SCAN CHEST FINDINGS: There is no deep vein thrombosis on either side There is a 4 cm right-sided popliteal cyst IMPRESSION: NO DEEP VEIN THROMBOSIS Naren Espinoza MD 01/08/19 1428 Thank you for allowing us to participate in the care of your patient.
[2019-01-08] MEDS ORDERED: Carvedilol 3.125 MG Tab PO SCH (18:00)
[2019-01-08] MEDS ORDERED: Warfarin 2.5 MG Tab PO SCH (20:00)
== END 2019-01-08 13:25 | disposition swing bed (61) | DRG 292 ==
LOC: VM.ED 10:32 → VM.MS 13:06
PROVIDERS: ADMIT Nurse Practitioner Family; ATTEND Family Medicine
DX: I11.0 Hypertensive heart disease with heart failure (principal); E46 Unspecified protein-calorie malnutrition; I25.10 Atherosclerotic heart disease of native coronary artery without angina pectoris; R60.9 Edema, unspecified; S82.831A Other fracture of upper and lower end of right fibula, initial encounter for closed fracture; I48.91 Unspecified atrial fibrillation; R06.02 Shortness of breath; R41.0 Disorientation, unspecified; E87.6 Hypokalemia; E78.2 Mixed hyperlipidemia; E83.42 Hypomagnesemia; I48.2 Chronic atrial fibrillation; X58.XXXA Exposure to other specified factors, initial encounter; S62.669A Nondisplaced fracture of distal phalanx of unspecified finger, initial encounter for closed fracture; R41.89 Other symptoms and signs involving cognitive functions and awareness; E11.65 Type 2 diabetes mellitus with hyperglycemia; I50.9 Heart failure, unspecified; I49.5 Sick sinus syndrome; Z95.5 Presence of coronary angioplasty implant and graft; Z87.442 Personal history of urinary calculi; Z95.0 Presence of cardiac pacemaker; Z88.2 Allergy status to sulfonamides; Z88.8 Allergy status to other drugs, medicaments and biological substances; Z79.899 Other long term (current) drug therapy; Z79.82 Long term (current) use of aspirin; Z79.01 Long term (current) use of anticoagulants; Z79.4 Long term (current) use of insulin
CPT/HCPCS: 36415; 71045; 71275; 73610-RT; 80048; 80053; 80162; 81001; 82607; 82746; 82962; 83036; 83605; 83735; 83880; 84100; 84443; 84484; 84550; 85025; 85379; 85610; 86140; 87040; 87070; 87077; 87186; 93005; 93010; 93971-RT; 97110-GP; 97116-GP; 97161-GP; 97165-GO; 99284-GF; 99285-25; A9270-GY; G0515-GO; J1650; J1815-GY; J1940; J3475; J3480; J7030; Q9967

== ENCOUNTER 2019-01-08 13:10 | Inpatient (IN) | payer MEDICARE, OTHER ==
[2019-01-08] MEDS ORDERED: Hydrocortisone 1% Crm 30 GM Tube TOP PRN (13:50)
[2019-01-08] MEDS ORDERED: Insulin Lispro 100 Unit/ML 3 ML KwikPen SUBCUT SCH (18:00)
[2019-01-08] MEDS: Carvedilol 3.125 MG Tab PO SCH (18:37)
[2019-01-08] MEDS: Amoxicillin/Clavulanate K 875-125 MG Tab PO SCH (18:37)
[2019-01-08] MEDS ORDERED: Insulin Glargine,Human Rec. Analog 100 Units/ML 3 ML Pen SUBCUT SCH (20:00)
[2019-01-08] MEDS ORDERED: Warfarin 2.5 MG Tab PO SCH (20:00)
[2019-01-08] MEDS: Acetaminophen 500 MG Tab PO PRN (21:23)
[2019-01-08] MEDS: Insulin Glargine,Human Rec. Analog 100 Units/ML 3 ML Pen SUBCUT SCH (21:36)
[2019-01-09] MEDS: Acetaminophen 500 MG Tab PO PRN ×3 (01:24→18:03)
[2019-01-09] MEDS: Furosemide 40 MG Tab PO SCH (07:53)
[2019-01-09] MEDS: Allopurinol 300 MG Tab PO SCH (07:53)
[2019-01-09] MEDS: amLODIPine 2.5 MG Tab PO SCH (07:53)
[2019-01-09] MEDS: Digoxin 125 MCG Tab PO SCH (07:53)
[2019-01-09] MEDS: Amoxicillin/Clavulanate K 875-125 MG Tab PO SCH ×2 (07:54→18:04)
[2019-01-09] MEDS: Carvedilol 3.125 MG Tab PO SCH ×2 (07:54→18:04)
[2019-01-09] MEDS: atorvaSTATin 10 MG Tab PO SCH (07:54)
[2019-01-09] MEDS: Warfarin 2.5 MG Tab PO SCH (20:03)
[2019-01-09] MEDS: Insulin Glargine,Human Rec. Analog 100 Units/ML 3 ML Pen SUBCUT SCH (20:04)
[2019-01-10] MEDS: atorvaSTATin 10 MG Tab PO SCH (07:34)
[2019-01-10] MEDS: Amoxicillin/Clavulanate K 875-125 MG Tab PO SCH ×2 (07:34→17:10)
[2019-01-10] MEDS: Furosemide 40 MG Tab PO SCH (07:34)
[2019-01-10] MEDS: Digoxin 125 MCG Tab PO SCH (07:34)
[2019-01-10] MEDS: Carvedilol 3.125 MG Tab PO SCH ×2 (07:35→17:10)
[2019-01-10] MEDS: Allopurinol 300 MG Tab PO SCH (07:35)
[2019-01-10] MEDS: amLODIPine 2.5 MG Tab PO SCH (07:35)
[2019-01-10] MEDS ORDERED: Bisacodyl 5 MG Tab PO ONE (08:21)
[2019-01-10] MEDS: Docusate Sodium 100 MG Cap PO PRN (09:01)
[2019-01-10] MEDS: Acetaminophen 500 MG Tab PO PRN ×2 (09:04→19:55)
[2019-01-10] MEDS: Warfarin 2.5 MG Tab PO SCH (19:55)
[2019-01-10] MEDS: Insulin Glargine,Human Rec. Analog 100 Units/ML 3 ML Pen SUBCUT SCH (19:56)
[2019-01-11] MEDS: Carvedilol 3.125 MG Tab PO SCH ×2 (07:44→17:33)
[2019-01-11] MEDS: Digoxin 125 MCG Tab PO SCH (07:45)
[2019-01-11] MEDS: atorvaSTATin 10 MG Tab PO SCH (07:45)
[2019-01-11] MEDS: Furosemide 40 MG Tab PO SCH (07:45)
[2019-01-11] MEDS: amLODIPine 2.5 MG Tab PO SCH (07:45)
[2019-01-11] MEDS: Allopurinol 300 MG Tab PO SCH (07:45)
[2019-01-11] MEDS: Amoxicillin/Clavulanate K 875-125 MG Tab PO SCH ×2 (07:45→17:33)
[2019-01-11] MEDS: Insulin Glargine,Human Rec. Analog 100 Units/ML 3 ML Pen SUBCUT SCH (20:13)
[2019-01-11] MEDS: Acetaminophen 500 MG Tab PO PRN (20:15)
[2019-01-12] MEDS: amLODIPine 2.5 MG Tab PO SCH (07:42)
[2019-01-12] MEDS: Carvedilol 3.125 MG Tab PO SCH ×2 (07:42→17:59)
[2019-01-12] MEDS: atorvaSTATin 10 MG Tab PO SCH (07:42)
[2019-01-12] MEDS: Allopurinol 300 MG Tab PO SCH (07:42)
[2019-01-12] MEDS: Amoxicillin/Clavulanate K 875-125 MG Tab PO SCH ×2 (07:42→17:59)
[2019-01-12] MEDS: Furosemide 40 MG Tab PO SCH (07:42)
[2019-01-12] MEDS: Digoxin 125 MCG Tab PO SCH (07:44)
[2019-01-12] MEDS ORDERED: Warfarin 2.5 MG Tab PO SCH ×2 (20:00)
[2019-01-12] MEDS: Insulin Glargine,Human Rec. Analog 100 Units/ML 3 ML Pen SUBCUT SCH (21:44)
[2019-01-12] MEDS: Acetaminophen 500 MG Tab PO PRN (21:53)
[2019-01-13] MEDS: Amoxicillin/Clavulanate K 875-125 MG Tab PO SCH ×2 (08:08→17:17)
[2019-01-13] MEDS: atorvaSTATin 10 MG Tab PO SCH (08:09)
[2019-01-13] MEDS: Furosemide 40 MG Tab PO SCH (08:09)
[2019-01-13] MEDS: Allopurinol 300 MG Tab PO SCH (08:09)
[2019-01-13] MEDS: Digoxin 125 MCG Tab PO SCH (08:10)
[2019-01-13] MEDS: amLODIPine 2.5 MG Tab PO SCH (08:10)
[2019-01-13] MEDS: Carvedilol 3.125 MG Tab PO SCH ×2 (08:10→17:17)
[2019-01-13] MEDS: Warfarin 2.5 MG Tab PO SCH (19:53)
[2019-01-13] MEDS: Insulin Glargine,Human Rec. Analog 100 Units/ML 3 ML Pen SUBCUT SCH (19:53)
[2019-01-13] MEDS ORDERED: Warfarin 2.5 MG Tab PO SCH (20:00)
[2019-01-13] MEDS: Acetaminophen 500 MG Tab PO PRN (20:10)
[2019-01-14] MEDS: amLODIPine 2.5 MG Tab PO SCH (08:06)
[2019-01-14] MEDS: Carvedilol 3.125 MG Tab PO SCH ×2 (08:06→17:23)
[2019-01-14] MEDS: Furosemide 40 MG Tab PO SCH (08:06)
[2019-01-14] MEDS: atorvaSTATin 10 MG Tab PO SCH (08:06)
[2019-01-14] MEDS: Amoxicillin/Clavulanate K 875-125 MG Tab PO SCH ×2 (08:06→17:22)
[2019-01-14] MEDS: Allopurinol 300 MG Tab PO SCH (08:06)
[2019-01-14] MEDS: Digoxin 125 MCG Tab PO SCH (08:06)
[2019-01-14] MEDS: Warfarin 2.5 MG Tab PO SCH (19:45)
[2019-01-14] MEDS: Insulin Glargine,Human Rec. Analog 100 Units/ML 3 ML Pen SUBCUT SCH (19:46)
[2019-01-14] MEDS: Acetaminophen 500 MG Tab PO PRN (19:51)
[2019-01-15] MEDS: Furosemide 40 MG Tab PO SCH (08:26)
[2019-01-15] MEDS: Amoxicillin/Clavulanate K 875-125 MG Tab PO SCH ×2 (08:26→18:31)
[2019-01-15] MEDS: Allopurinol 300 MG Tab PO SCH (08:26)
[2019-01-15] MEDS: Carvedilol 3.125 MG Tab PO SCH ×2 (08:26→18:31)
[2019-01-15] MEDS: atorvaSTATin 10 MG Tab PO SCH (08:27)
[2019-01-15] MEDS: amLODIPine 2.5 MG Tab PO SCH (08:27)
[2019-01-15] MEDS: Digoxin 125 MCG Tab PO SCH (08:27)
[2019-01-15] MEDS ORDERED: Warfarin 2.5 MG Tab PO ONE (20:00)
[2019-01-15] MEDS: Insulin Glargine,Human Rec. Analog 100 Units/ML 3 ML Pen SUBCUT SCH (20:22)
[2019-01-15] MEDS: Acetaminophen 500 MG Tab PO PRN (20:23)
[2019-01-16] MEDS: Furosemide 40 MG Tab PO SCH (09:49)
[2019-01-16] MEDS: Allopurinol 300 MG Tab PO SCH (09:49)
[2019-01-16] MEDS: atorvaSTATin 10 MG Tab PO SCH (09:49)
[2019-01-16] MEDS: Digoxin 125 MCG Tab PO SCH (09:50)
[2019-01-16] MEDS: Amoxicillin/Clavulanate K 875-125 MG Tab PO SCH ×2 (09:50→17:46)
[2019-01-16] MEDS: amLODIPine 2.5 MG Tab PO SCH (09:51)
[2019-01-16] MEDS: Carvedilol 3.125 MG Tab PO SCH ×2 (09:51→17:46)
[2019-01-16] MEDS: Warfarin 2.5 MG Tab PO SCH (21:44)
[2019-01-16] MEDS: Insulin Glargine,Human Rec. Analog 100 Units/ML 3 ML Pen SUBCUT SCH (21:44)
[2019-01-17] MEDS: atorvaSTATin 10 MG Tab PO SCH (07:36)
[2019-01-17] MEDS: Allopurinol 300 MG Tab PO SCH (07:36)
[2019-01-17] MEDS: Furosemide 40 MG Tab PO SCH (07:36)
[2019-01-17] MEDS: Carvedilol 3.125 MG Tab PO SCH ×2 (07:36→17:50)
[2019-01-17] MEDS: amLODIPine 2.5 MG Tab PO SCH (07:36)
[2019-01-17] MEDS: Digoxin 125 MCG Tab PO SCH (07:36)
[2019-01-17] MEDS: Warfarin 2.5 MG Tab PO SCH (19:37)
[2019-01-17] MEDS: Insulin Glargine,Human Rec. Analog 100 Units/ML 3 ML Pen SUBCUT SCH (19:38)
[2019-01-18] MEDS: Furosemide 40 MG Tab PO SCH (07:30)
[2019-01-18] MEDS: Allopurinol 300 MG Tab PO SCH (07:30)
[2019-01-18] MEDS: atorvaSTATin 10 MG Tab PO SCH (07:30)
[2019-01-18] MEDS: Digoxin 125 MCG Tab PO SCH (07:31)
[2019-01-18] MEDS: Carvedilol 3.125 MG Tab PO SCH ×2 (07:31→17:56)
[2019-01-18] MEDS: amLODIPine 2.5 MG Tab PO SCH (07:31)
[2019-01-18] MEDS: Warfarin 2.5 MG Tab PO SCH (21:06)
[2019-01-18] MEDS: Insulin Glargine,Human Rec. Analog 100 Units/ML 3 ML Pen SUBCUT SCH (21:06)
[2019-01-19] MEDS: Furosemide 40 MG Tab PO SCH (07:54)
[2019-01-19] MEDS: atorvaSTATin 10 MG Tab PO SCH (07:54)
[2019-01-19] MEDS: Digoxin 125 MCG Tab PO SCH (07:54)
[2019-01-19] MEDS: Carvedilol 3.125 MG Tab PO SCH ×2 (07:54→20:20)
[2019-01-19] MEDS: Allopurinol 300 MG Tab PO SCH (07:54)
[2019-01-19] MEDS: amLODIPine 2.5 MG Tab PO SCH (07:54)
[2019-01-19] MEDS: Warfarin 2.5 MG Tab PO SCH (20:20)
[2019-01-19] MEDS: Acetaminophen 500 MG Tab PO PRN (20:21)
[2019-01-19] MEDS: Insulin Glargine,Human Rec. Analog 100 Units/ML 3 ML Pen SUBCUT SCH (20:22)
[2019-01-20] MEDS: Furosemide 40 MG Tab PO SCH (08:01)
[2019-01-20] MEDS: atorvaSTATin 10 MG Tab PO SCH (08:01)
[2019-01-20] MEDS: Docusate Sodium 100 MG Cap PO PRN ×2 (08:01→21:10)
[2019-01-20] MEDS: Allopurinol 300 MG Tab PO SCH (08:01)
[2019-01-20] MEDS: amLODIPine 2.5 MG Tab PO SCH (08:01)
[2019-01-20] MEDS: Digoxin 125 MCG Tab PO SCH (08:01)
[2019-01-20] MEDS: Carvedilol 3.125 MG Tab PO SCH ×3 (08:01→21:15)
[2019-01-20] MEDS: Insulin Glargine,Human Rec. Analog 100 Units/ML 3 ML Pen SUBCUT SCH (21:10)
[2019-01-20] MEDS: Acetaminophen 500 MG Tab PO PRN (21:10)
[2019-01-20] MEDS: Warfarin 2.5 MG Tab PO SCH (21:13)
[2019-01-21] MEDS: amLODIPine 2.5 MG Tab PO SCH (07:40)
[2019-01-21] MEDS: Furosemide 40 MG Tab PO SCH (07:40)
[2019-01-21] MEDS: Allopurinol 300 MG Tab PO SCH (07:41)
[2019-01-21] MEDS: Digoxin 125 MCG Tab PO SCH (07:41)
[2019-01-21] MEDS: atorvaSTATin 10 MG Tab PO SCH (07:41)
[2019-01-21] MEDS: Carvedilol 3.125 MG Tab PO SCH ×2 (07:41→20:11)
[2019-01-21] MEDS ORDERED: Diphtheria,Pertussis(Acell),Tetanus Vaccine 0.5 ML Syringe IM ONE (13:42)
[2019-01-21] MEDS ORDERED: Insulin Glargine,Human Rec. Analog 100 Units/ML 3 ML Pen**OWN MED SUBCUT SCH (20:00)
[2019-01-21] MEDS: Insulin Glargine,Human Rec. Analog 100 Units/ML 3 ML Pen**OWN MED SUBCUT SCH (20:07)
[2019-01-21] MEDS: Warfarin 2.5 MG Tab PO SCH (20:12)
[2019-01-21] MEDS: Acetaminophen 500 MG Tab PO PRN (20:13)
[2019-01-21] MEDS: Docusate Sodium 100 MG Cap PO PRN (20:14)
[2019-01-22] MEDS: Allopurinol 300 MG Tab PO SCH (07:28)
[2019-01-22] MEDS: atorvaSTATin 10 MG Tab PO SCH (07:28)
[2019-01-22] MEDS: amLODIPine 2.5 MG Tab PO SCH (07:28)
[2019-01-22] MEDS: Carvedilol 3.125 MG Tab PO SCH ×2 (07:28→20:27)
[2019-01-22] MEDS: Digoxin 125 MCG Tab PO SCH (07:28)
[2019-01-22] MEDS: Furosemide 40 MG Tab PO SCH (07:29)
[2019-01-22] MEDS: Warfarin 2.5 MG Tab PO SCH (20:26)
[2019-01-22] MEDS: Insulin Glargine,Human Rec. Analog 100 Units/ML 3 ML Pen**OWN MED SUBCUT SCH (20:31)
[2019-01-23] MEDS: atorvaSTATin 10 MG Tab PO SCH (07:27)
[2019-01-23] MEDS: Furosemide 40 MG Tab PO SCH (07:27)
[2019-01-23] MEDS: Carvedilol 3.125 MG Tab PO SCH ×2 (07:27→19:23)
[2019-01-23] MEDS: Allopurinol 300 MG Tab PO SCH (07:28)
[2019-01-23] MEDS: amLODIPine 2.5 MG Tab PO SCH (07:28)
[2019-01-23] MEDS: Digoxin 125 MCG Tab PO SCH (07:28)
--- NOTE | 2019-01-23 14:51 | PCM.DCSUM1 ---
Discharge Summary - Hospital Course HPI Initial Comments: 82-year-old female patient seen in clinic on December 28, 2018 for a chief complaint of right ankle pain. The patient had denied any injury at that time. X -ray of the right ankle at that time did show a fracture. The patient was contacted via letter so her right foot to be placed in a boot, however she did not return to the clinic. The patient was seen again today in clinic for swelling of the right calf and right lower extremity, painful ankle, and increasing shortness of breath. The patient is somewhat of a poor historian and could not remember when her shortness of breath started. Given the provider's examination, it was felt the patient needed to be seen in emergency room due to her current symptoms. The patient is also had a 16 pound weight loss over the past week. Workup in the emergency department at [facility] showed a BNP of 8900, potassium of 2.9, pulmonary edema on chest x-ray, and again the nondisplaced distal fibular fracture. The patient has blistering of the right lower extremity. According to the patient's clinical records, the patient had stopped all of her medications over 8 months ago. The patient has a history of atrial fibrillation and has not been taking her Coumadin placing her at great risk of a pulmonary embolus or DVT. The patient also has not been taking her insulin or antihypertensive medications. The patient's last visit in clinic was January 2018. The patient also has a pacemaker and has not been following up with the pacemaker clinic. The patient is admitted to the acute care floor at [facility] for acute exacerbation of CHF, right fibular fracture, uncontrolled diabetes, malnutrition , and pulmonary edema. Diagnosis: Stroke: No Modified [place] Scale: No Symptoms at All Modified [place] Scale Score: 0 - Discharge Data Discharge Date: 01/24/19 Discharge Disposition: DC/Tfer to SNF 03 Condition: Fair - Patient Summary/Data Operative Procedure(s) Performed: None Consults: Consultations 01/08/19 13:46 Consult to Case Management/Local City Driver [CONS] Routine PT Evaluation and Treatment [CONS] Routine Labs Pending at D/C: None Recommended Follow-up Testing/Procedures: Xray of right ankle/foot re-eval s/p fracture Planned Operative Procedure(s) after DC: None Hospital Course: Patient remained hemodynamically stable. No fevers. Pain well controlled on Tylenol. Meds adjusted on this visit. Blood sugars under better control. Initially have electrolyte imbalance on admission. Corrected with IV replacement. Patient doing well with physical therapy. No OT services medically necessary. No issues with urination or BM's. Influenza and TdaP update during this admission. - Patient Instructions Diet: Diabetic Diet Activity, Other: Per PT recommendations Driving: Do Not Drive Showering/Bathing: May Shower Notify Provider of: Fever, Increased Pain, Swelling and Redness, Drainage - Discharge Plan *PRESCRIPTION DRUG MONITORING PROGRAM REVIEWED*: Not Applicable *COPY OF PRESCRIPTION DRUG MONITORING REPORT IN PATIENT AMY: Not Applicable Home Medications: Home Meds Allopurinol [Zyloprim] 300 mg PO DAILY 01/12/14 [History] Digoxin [Digox] 125 mcg PO DAILY 01/12/14 [History] Furosemide [Lasix] 40 mg PO DAILY 01/12/14 [History] Warfarin [Coumadin] 1.25 mg PO MOTH 01/12/14 [History] Insulin Lispro [Humalog] 15 unit SQ TIDMEALS 01/04/19 [History] Acetaminophen [Tylenol Extra Strength] 1,000 mg PO Q6H PRN tablet 01/08/19 [Rx] Carvedilol [Coreg] 3.125 mg PO BIDM tablet 01/08/19 [Rx] Hydrocortisone [Hydrocortisone 1% Crm] 0 gm TOP TID PRN tube 01/08/19 [Rx] amLODIPine [Norvasc] 2.5 mg PO DAILY tablet 01/08/19 [Rx] Docusate Sodium [Colace] 100 mg PO BID PRN cap 01/23/19 [Rx] Insulin Glarg,Human.Rec.Analog [Lantus Solostar] 15 units SUBCUT BEDTIME pen [Rx] Warfarin [Coumadin] 2.5 mg PO SuTuWeFrSa@[id number] tablet 01/23/19 [Rx] atorvaSTATin [Lipitor] 10 mg PO DAILY tablet 01/23/19 [Rx] Oxygen Therapy Mode: Room Air - Discharge Summary/Plan Comment DC Time >30 min.: Yes Discharge Summary/Plan Comment: Patient will be discharge to [facility] in [place], [place]. Med recon completed and faxed. Transfer orders completed. Patient will need a repeat xray of right ankle/foot in 2 weeks. Patient is a Code 1. ADA diet. Activity per PT recommendations. Must use a walked with ambulation. See PCP in one week for hospital discharge follow up. - General Info Date of Service: 01/23/19 Admission Dx/Problem (Free Text: Acute exacerbation of chronic congestive heart failure Weakness Deconditioning Hypokalemia Hypomagnesemia Fluid retention Nondisplaced distal fibular metaphysis fracture, right Malnutrition Uncontrolled diabetes type 2 Acute pulmonary edema secondary to CHF Functional Status: Reports: Pain Controlled, Tolerating Diet, Ambulating, Urinating. Denies: New Symptoms Numeric/FACES Score: 0 - Review of Systems General: Denies: Fever, Chills Pulmonary: Denies: Shortness of Breath, Cough Cardiovascular: Denies: Chest Pain, Palpitations Gastrointestinal: Denies: Abdominal Pain, Nausea, Vomiting Musculoskeletal: Reports: Foot Pain (with ambulation) Skin: Reports: No Symptoms Neurological: Reports: No Symptoms - Patient Data Vitals - Most Recent: Last Vital Signs Temp 97.6 F 01/23/19 06:00 Pulse 72 01/23/19 07:28 Resp 17 01/23/19 06:00 BP 126/69 01/23/19 07:28 Pulse Ox 96 01/23/19 06:00 Weight - Most Recent: 174 lb I&O - Last 24 hours: Intake & Output 01/22/19 01/23/19 01/23/19 22:59 06:59 14:59 Intake Total 400 Balance 400 Lab Results - Last 24 hrs: Laboratory Results - last 24 hr 01/22/19 Range/Units 20:30 POC Glucose 276 H (74-106) mg/dL Med Orders - Current: Current Medications Acetaminophen (Tylenol Extra Strength) 1,000 mg PO Q6H PRN PRN Reason: Pain Last Admin: 01/21/19 20:13 Dose: 1,000 mg Allopurinol (Zyloprim) 300 mg PO DAILY [facility] Last Admin: 01/23/19 07:28 Dose: 300 mg Amlodipine Besylate (Norvasc) 2.5 mg PO DAILY [facility] Last Admin: 01/23/19 07:28 Dose: 2.5 mg Atorvastatin Calcium (Lipitor) 10 mg PO DAILY [facility] Last Admin: 01/23/19 07:27 Dose: 10 mg Carvedilol (Coreg) 3.125 mg PO BID@0800,2000 [facility] Last Admin: 01/23/19 07:27 Dose: 3.125 mg Digoxin (Lanoxin) 125 mcg PO DAILY [facility] Last Admin: 01/23/19 07:28 Dose: 125 mcg Docusate Sodium (Colace) 100 mg PO BID PRN PRN Reason: Constipation Last Admin: 01/21/19 20:14 Dose: 100 mg Furosemide (Lasix) 40 mg PO DAILY [facility] Last Admin: 01/23/19 07:27 Dose: 40 mg Hydrocortisone (Hydrocortisone 1% Crm) 0 gm TOP TID PRN PRN Reason: rash Last Admin: 01/09/19 07:54 Dose: 1 applic Insulin Glargine (Lantus Solostar) 15 units SUBCUT BEDTIME [facility] Last Admin: 01/22/19 20:31 Dose: 15 units Insulin Human Lispro (Humalog) 15 unit SUBCUT TIDMEALS [facility] Warfarin Sodium (Coumadin) 1.25 mg PO MoTh@1999 [facility] Last Admin: 01/22/19 20:26 Dose: 1.25 mg Warfarin Sodium (Coumadin) 2.5 mg PO SuTuWeFrSa@1999 [facility] Last Admin: 01/21/19 20:12 Dose: 2.5 mg Discontinued Medications Allopurinol (Zyloprim) 300 mg PO DAILY [facility] Last Admin: 01/12/19 07:42 Dose: 300 mg Amlodipine Besylate (Norvasc) 2.5 mg PO DAILY [facility] Last Admin: 01/12/19 07:42 Dose: 2.5 mg Amoxicillin/Clavulanate Potassium (Augmentin 875 Mg/125 Mg) 1 tab PO BIDMEALS [facility] Stop: 01/16/19 18:01 Last Admin: 01/12/19 07:42 Dose: 1 tab Amoxicillin/Clavulanate Potassium (Augmentin 875 Mg/125 Mg) 1 tab PO BIDMEALS [facility] Stop: 01/16/19 18:01 Last Admin: 01/16/19 17:46 Dose: 1 tab Atorvastatin Calcium (Lipitor) 10 mg PO DAILY [facility] Last Admin: 01/12/19 07:42 Dose: 10 mg Bisacodyl (Dulcolax) 5 mg PO ONETIME ONE Stop: 01/10/19 08:22 Last Admin: 01/10/19 09:01 Dose: 5 mg Carvedilol (Coreg) 3.125 mg PO BIDMEALS [facility] Last Admin: 01/12/19 07:42 Dose: 3.125 mg Carvedilol (Coreg) 3.125 mg PO BIDMEALS [facility] Last Admin: 01/20/19 21:05 Dose: Not Given Digoxin (Lanoxin) 125 mcg PO DAILY [facility] Last Admin: 01/12/19 07:44 Dose: 125 mcg Diphtheria/Tetanus/Acell Pertussis (Adacel) 0.5 ml IM .ONCE ONE Stop: 01/21/19 13:43 Last Admin: 01/21/19 14:11 Dose: 0.5 ml Furosemide (Lasix) 40 mg PO DAILY [facility] Last Admin: 01/12/19 07:42 Dose: 40 mg Influenza Virus Vaccine (Fluzone High-Dose 2018-20 Syringe) 180 mcg IM .ONCE ONE Stop: 01/10/19 14:01 Last Admin: 01/10/19 13:49 Dose: 180 mcg Insulin Glargine (Lantus Solostar) 95 units SUBCUT BEDTIME [facility] Insulin Glargine (Lantus Solostar) 10 units SUBCUT BEDTIME [facility] Last Admin: 01/11/19 20:13 Dose: 10 units Insulin Glargine (Lantus Solostar) 10 units SUBCUT BEDTIME [facility] Last Admin: 01/20/19 21:10 Dose: 10 units Insulin Glargine (Lantus Solostar) 15 units SUBCUT BEDTIME [facility] Warfarin Sodium (Coumadin) 1.25 mg PO MoTh@1999 [facility] Last Admin: 01/08/19 21:23 Dose: 1.25 mg Warfarin Sodium (Coumadin) 2.5 mg PO SuTuWeFrSa@1999 [facility] Last Admin: 01/10/19 19:55 Dose: 2.5 mg Warfarin Sodium (Coumadin) 1.25 mg PO MoWeFr@1999 [facility] Warfarin Sodium (Coumadin) 2.5 mg PO SuTuThSa@1999 [facility] Warfarin Sodium (Coumadin) 1.25 mg PO MoWeFr@1999 [facility] Last Admin: 01/12/19 21:45 Dose: 1.25 mg Warfarin Sodium (Coumadin) 2.5 mg PO SuTuThSa@1999 [facility] Last Admin: 01/14/19 19:45 Dose: 2.5 mg Warfarin Sodium (Coumadin) 2.5 mg PO ONETIME ONE Stop: 01/15/19 20:01 Last Admin: 01/15/19 20:23 Dose: 2.5 mg - Exam Quality Assessment: Reports: DVT Prophylaxis (chronic Coumadin). Denies: Skin Breakdown General: Reports: Alert, Cooperative, No Acute Distress Lungs: Reports: Clear to Auscultation, Normal Respiratory Effort, Decreased Breath Sounds Cardiovascular: Reports: Regular Rate, Regular Rhythm GI/Abdominal Exam: Normal Bowel Sounds, Soft, Non-Tender Extremities: Pedal Edema (+1 bilateral) Skin: Reports: Warm, Dry Neurological: Reports: No New Focal Deficit *Q Meaningful Use (DIS) - VTE *Q VTE Mechanical Contraindications *Q: At Risk for Falls
[2019-01-23] MEDS: Insulin Glargine,Human Rec. Analog 100 Units/ML 3 ML Pen**OWN MED SUBCUT SCH (19:22)
[2019-01-23] MEDS: Warfarin 2.5 MG Tab PO SCH (19:23)
[2019-01-24] MEDS: Furosemide 40 MG Tab PO SCH (07:33)
[2019-01-24] MEDS: atorvaSTATin 10 MG Tab PO SCH (07:33)
[2019-01-24] MEDS: Allopurinol 300 MG Tab PO SCH (07:33)
[2019-01-24] MEDS: Carvedilol 3.125 MG Tab PO SCH (07:34)
[2019-01-24] MEDS: Digoxin 125 MCG Tab PO SCH (07:34)
[2019-01-24] MEDS: amLODIPine 2.5 MG Tab PO SCH (07:34)
== END 2019-01-24 11:15 | DRG 292 ==
LOC: VM.MS 13:25
PROVIDERS: ADMIT Nurse Practitioner Family; ATTEND Family Medicine
DX: I50.1 Left ventricular failure, unspecified (principal); I48.20 Chronic atrial fibrillation, unspecified; E46 Unspecified protein-calorie malnutrition; E11.65 Type 2 diabetes mellitus with hyperglycemia; S82.831A Other fracture of upper and lower end of right fibula, initial encounter for closed fracture; R41.89 Other symptoms and signs involving cognitive functions and awareness; E87.6 Hypokalemia; E83.42 Hypomagnesemia; Z68.29 Body mass index [BMI] 29.0-29.9, adult; Z79.4 Long term (current) use of insulin; Z79.01 Long term (current) use of anticoagulants; Z79.899 Other long term (current) drug therapy; Z95.0 Presence of cardiac pacemaker
CPT/HCPCS: 36415; 81001; 82962; 85610; 90471; 90662; 90715; 97116-GP; A9270-GY; G0008; J1815-GY